=== PATIENT | male | born 1955 | race Caucasian/White ===

== ENCOUNTER 2019-04-27 06:01 | Inpatient (IN) | payer OTHER, SELFPAY ==
[2019-04-09 09:47] VITALS: BMI 27.4
[2019-04-27] VITALS (22 sets, daily range): BP systolic 93–152; BP diastolic 45–96; PULSE 63–101; RESP 12–24; TEMP 36.3–37.2; O2SAT 93–98; BMI 27.4
--- NOTE | 2019-04-27 | DI.RAD.S_ITS ---
PROCEDURE: XR LUMBAR SPINE 2-3V INDICATIONS: L2-3, L3-4, L4-5 TLIF TECHNIQUE: 2 views of the lumbar spine were acquired. COMPARISON: [facility], MR, MR LUMBAR SPINE WITHOUT CONTRAST, 02/24/2019, 9:06. [facility], CR, XR LUMBAR SPINE WITH FLEXION EXTENSION 5 VIEWS, 11/19/2018, 15:01. FINDINGS: Bones: 5 [id number] vertebrae are present. There is normal bony alignment. No new vertebral body compression fractures. No suspicious bony lesions. Transverse pedicle screws and vertical fixation rods span from L2-L5 with interbody disc prosthesis at the 3 intervening disc spaces. Soft tissues: Overlying bowel gas pattern is normal. No suspicious soft tissue calcifications. IMPRESSION: Prior spine fusion, normal alignment established by fixation crossing from L2-L5. Dictated by: Julian Hua M.D. on 04/27/2019 at 12:58 Approved by: Julian Hua M.D. on 04/27/2019 at 13:01
[2019-04-27] MEDS: LACTATED RINGERS 1,000 ML 42 ML IV ×3 (07:08→09:38)
--- NOTE | 2019-04-27 07:44 | PM.PREOP ---
Pre-operative Note Interval Note History & Physical reviewed/Exam performed by Physician: Yes Changes to H&P: No
[2019-04-27] MEDS: CEFAZOLIN 2 GM/100 ML FROZ.PIGGY IV ×4 (07:55→23:57)
--- NOTE | 2019-04-27 08:43 | SUR.OPER ---
Prone on spine table, head in foam head support, padded chest and pelvic supports, gel pad at knees, lower legs supported by pillows; nipples, genitalia and toes free of pressure, arms secured on foam padded arm boards at <90 degrees abduction. Tape over blanket at thigh secured to table.
[2019-04-27] MEDS: BUPIVACAINE LIPOSOME 266 MG/20 ML VIAL INJ (08:53)
[2019-04-27] MEDS: BUPIVACAINE 0.25% W/ EPI 30 ML VIAL INJ (08:53)
--- NOTE | 2019-04-27 08:56 | SUR.OPER ---
Heparin 40,000 units used in [facility] by STEFFANIE Tolentino
--- NOTE | 2019-04-27 09:02 | SUR.OPER ---
Surgery was scheduled with [facility] and needed Heparin 40,000 units for a rep to run it. Pharmacy needed an order from Dr. Cardozo. Late start because needed 's order for Heparin 40,000.
[2019-04-27] MEDS: ACETAMINOPHEN IV 1,000 MG/100 ML VIAL 400 MG IV (12:20)
--- NOTE | 2019-04-27 12:33 | SUR.OPER ---
[facility] blood 225 ml given to the patient, at 12:[address] Rocha
--- NOTE | 2019-04-27 13:00 | P.OP_ITS ---
Operative Date/Time/Diagnoses Date of procedure: 04/27/19 Time of procedure: 07:54 Pre-op diagnosis: 1. L2-3, L3-4, L4-5 spinal stenosis 2. Lumbar scoliosis 3. Lumbar spondylosis with radiculopathy Post-op diagnosis: same Procedure & Clinicians Procedure: 1. L2-3, L3-4, L4-5 Postero-lateral and posterior interbody fusion 2. L2-3, L3-4, L4-5 interbody cage placement. 3. L2-3, L3-4, L4-5 decompressive laminectomy with bilateral facetecomies 4. L2-3, L3-4, L4-5 Posterior segmental instrumentation 5. Winnie of bone marrow from iliac crest 6. Utilization of microsurgical technique and operating microscope Same procedure as scheduled: Yes Indications: Patient has been having chronic back pain and worsening lumbar radiculopathy. Patient failed multiple conservative management with worsening pain weakness and numbness in her lower extremity. Patient has been having difficulty performing activity of daily living. After discussing risks benefits of treatment options, patient elected proceed with surgery. Surgeon: Alistair Cardozo Front Office Help: Elli Aiken Click Yes if Unassisted: No Anesthesia Type: General Operative Notes Closure Type: primary Specimen(s): none sent Prosthetic devices, grafts, tissues, transplants, or devices: Globus revolve screws, Rise cages Applied: catheter Estimated Blood Loss (mL): 200 Blood products transfused: none Procedure in detail: Patient was seen in the preoperative area. Risks and benefits of the surgery was discussed with the patient. Informed consent was obtained from the patient and placed in the chart. Surgical site was marked. Patient was taken to the operative room. General anesthesia was administered. Prophylactic antibiotic was given to the patient less than 30 min before the incision was made. Patient was placed into a prone position on the Sloan table. Patient's back was then prepped and draped in the sterile fashion. Time- out was performed at this time. Using AP and lateral C-arm imaging the interval between L2-5 was identified and marked on patient's back. A 3 inch incision 2 in from midline was made on the right side first. The fascia was incised in line with skin incision. Globus MARS retractors was placed inside the incision and docked onto the L2, L3 and L4 lamina. Using microsurgical technique and operating microscope, a L2, L3 and L4 laminectomy and L2-3, L3-4, L4-5 facetectomy was performed using a Kerrison rongeur. The disc space at L2-3, L3-4, L4-5 was identified. And a total diskectomy was performed at L2-3, L3-4, L4-5 level. The endplates were decorticated using a rasp and shaver. The total diskectomy and decortication was performed at L2-3, L3-4, L4-5 level in order to to accomplish a L2-3, L3-4, L4-5 fusion. The local bone from the laminectomy and facetectomy was saved for local bone grafting. After the total diskectomy and decortication was completed, DBM bone graft material was combined with local bone that was harvested earlier. At this time, a separate skin is incision was made over the iliac crest. A Jamshidi needle was inserted into the iliac crest through a separate skin incision. 5 cc of bone marrow aspiration was obtained through the separate skin incision using a Jamshidi needle from the iliac crest. The bone marrow aspiration was combined with local bone and the DBM bone grafting material. The bone grafting material was placed into the L2-3, L3-4, L4-5 interbody space along with three cages, one expandable cage at each level. The cages were expanded to their maximum height using the torque limiting screwdriver. At this time a mirror image incision was made on the left side. The fascia was incised in line with the skin incision. Globus MARS retractor was inserted and docked onto the L2-3, L3-4, L4-5 posterolateral gutter. Using the power drill, posterior-lateral decortication was performed at L2-3, L3-4, L4-5 level until bleeding cortical bone was identified. The remaining bone grafting material was placed into the L2-3, L3-4, L4-5 posterior lateral gutter he order to accomplish posterolateral fusion at the L2-3, L3-4, L4-5 levels. Using the double C-arm technique, pedicle screws were placed into the L2, L3, L4, L5 pedicles bilaterally. This was done by placing the Jamshidi needle into the pedicles, then placing the guidewires over the Jamshidi needle, and finally placing the cannulated screws over the guidewires bilaterally. After the pedicle screws were placed, 2 titanium rods was locked into the heads of the pedicle screws using locking caps and torque limiting screwdriver. Total 8 pedicles screws were placed. After all the hardware was placed, and confirmed with AP and lateral C-arm imaging, the wound was then irrigated with sterile normal saline and packed with Ray-Shu gauze for 3 min to accomplish hemostasis. After the gauze was removed the deep fascia was closed with #1 Vicryl suture. The subcutaneous layer was closed with 2-0 Vicryl. The skin was closed with skin cole. Patient tolerated the procedure well. There were no complications. Complications: none Condition: stable Disposition: PACU Plan for aftercare: Admit to inpatient hospital
[2019-04-27] MEDS: HYDROMORPHONE 2 MG INJ 0.5 MG IV ×2 (13:28→13:55)
[2019-04-27] MEDS: hydrOXYzine 50 MG/ML INJ IM (13:37)
--- NOTE | 2019-04-27 13:45 | SUR.PHASEI ---
Report given to Rajesh
--- NOTE | 2019-04-27 14:06 | SUR.PHASEI ---
Barely able to keep eyes open but pain is 10/10. Sats at 92% on RA with rate okay but am reluctant to give more analgesic. Mildly tremor seen b/l to arms.
--- NOTE | 2019-04-27 14:08 | SUR.PHASEI ---
Also seen pulling off gown several times.
--- NOTE | 2019-04-27 14:48 | PT.IPTN ---
Current Diagnoses Other secondary scoliosis, lumbar region (04/27/19) Spondylolisthesis, lumbar region (04/27/19) Spinal stenosis, lumbar region with neurogenic claudication (04/27/19) Surgery Performed Operation Date: 04/27/19 07:45 Actual Procedures p L2-3,L3-4,L4-5 TLIF w/Posterior Instru. - Alistair Cardozo MD Physical Therapy Treatment Note Notes Pt just arriving to floor at 1445 and is still quite sleepy /groggy. Pt not yet ready to participate in therapy assessment, will hold today and attempt tomorrow.
[2019-04-27] MEDS: SODIUM CHLORIDE 0.9% 1,000 ML 100 ML IV (14:51)
[2019-04-27] MEDS: OXYCODONE IR 5 MG TABLET 10 MG PO ×3 (15:35→22:20)
[2019-04-27] MEDS: HYDROMORPHONE 1 MG INJ 0.5 MG IV (15:39)
[2019-04-27] MEDS: hydrOXYzine pamoate 25 MG CAPSULE PO (15:49)
[2019-04-27] MEDS: HYDROMORPHONE 0.5 MG INJ IV ×2 (15:55→23:56)
[2019-04-27] MEDS: diazePAM 5 MG TABLET PO ×2 (15:55→20:23)
[2019-04-27] MEDS: HYDROMORPHONE 2 MG INJ 1 MG IV (16:53)
[2019-04-27] MEDS: HYDROMORPHONE 1 MG INJ IV (17:58)
[2019-04-27] MEDS: OXYCODONE ER 10 MG TAB PO (20:23)
[2019-04-27] MEDS: DOCUSATE 100 MG CAPSULE PO (20:40)
[2019-04-27] MEDS: SENNOSIDES 8.6 MG TABLET 17.2 MG PO (20:42)
[2019-04-27] MEDS: TRAZODONE 50 MG TABLET PO (20:42)
[2019-04-28] VITALS (8 sets, daily range): BP systolic 110–120; BP diastolic 65–76; PULSE 67–94; RESP 14–18; TEMP 36.8–37.7; O2SAT 92–97
[2019-04-28] MEDS: OXYCODONE IR 5 MG TABLET 10 MG PO ×4 (01:27→14:31)
[2019-04-28] MEDS: SODIUM CHLORIDE 0.9% 1,000 ML 100 ML IV (01:28)
--- NOTE | 2019-04-28 04:21 | PC.NURSE ---
Addendum entered and electronically signed by Kezia Anthony R.N. 04/28/19 06:14: Saline locked @0615 Original Note: Addendum entered and electronically signed by Kezia Anthony R.N. 04/28/19 05:10: Coming on Shift Pt. admission assessment was not complete. I asked the same questions in my shift assessment so put it as completed. Original Note: Pt has had a lot of pain this shift and is complaining at times pain level 10/10. Pt has been given 10mg oxycodone Q3, w/ dilaudid for breakthrough pain. Pt has been re-positioned for pain relief. At 0430 Pt had elevated temp of 99.8, Tylenol was given, IS/Cough/Deep Breathing encouraged. Pt declined to wear SCD's, he was educated about the use of them. is by the side this night.
[2019-04-28] MEDS: ACETAMINOPHEN 325 MG TABLET 650 MG PO (04:39)
--- NOTE | 2019-04-28 07:47 | PM.PNPO.1 ---
Subjective Date Patient Seen: 04/28/19 Time Patient Seen: 07:00 Interval history: POD 1 s/p L2-[address] Cardozo. Patient had a lot of pain last night. He was on [place] 10/325 mg prior to surgery. Last night he was started on Valium, OxyContin, oxycodone 10, and had 1 dose of Dilaudid IV for breakthrough pain. He complains of pain mostly in the back and as tight muscle spasms. He has not been up with physical therapy yet. Exam Vital Signs (past 8 hours): - 04/27/19 23:50 04/28/19 04:25 04/28/19 04:39 Temperature 99.0 F 99.8 F H 99.8 F H Pulse Rate 91 H 94 H Respiratory Rate 18 16 Blood Pressure 131/75 120/76 Pulse Oximetry 96 95 Oxygen Delivery Method Room Air Oxygen Flow Rate 0 Narrative Exam Narrative: Patient is sitting up in bed in no acute distress. He is alert and oriented x3. Sensation intact light touch throughout bilateral lower extremities. Pulses are symmetrical. Calves are soft, compressible, nontender bilaterally. Assessment & Plan Post-op (1) S/P lumbar fusion: Postoperative Procedures Operation Date: 04/27/19 07:45 Actual Procedures Side Surgeon p L2-3,L3-4,L4-5 TLIF w/Posterior Instru. Alistair Cardozo MD Patient will continue current pain regimen. Added oxycodone 15 mg for severe breakthrough pain. Started on Decadron 10 mg now, and 4 mg every 6 hours for 24 hours. Patient will mobilize with physical therapy today. No excessive bending, lifting, twisting. Patient will likely discharge home in next 2-3 days once pain adequately controlled, and mobilizing safely.
[2019-04-28] MEDS: DEXAMETHASONE 10 MG/ML VIAL IV (07:49)
[2019-04-28] MEDS: OXYCODONE ER 10 MG TAB PO ×2 (09:15→21:01)
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
[2019-04-28] MEDS: DOCUSATE 100 MG CAPSULE PO ×2 (10:15→21:01)
[2019-04-28] MEDS: dexAMETHasone 4 MG TABLET PO ×2 (14:31→18:46)
--- NOTE | 2019-04-28 14:42 | PT.IPTN ---
Current Diagnoses Other secondary scoliosis, lumbar region (04/27/19) Spondylolisthesis, lumbar region (04/27/19) Spinal stenosis, lumbar region with neurogenic claudication (04/27/19) Arthrodesis status (04/27/19) Surgery Performed Operation Date: 04/27/19 07:45 Actual Procedures p L2-3,L3-4,L4-5 TLIF w/Posterior Instru. - Alistair Cardozo MD Physical Therapy Treatment Note M2 PT-IP Current Condition Start: 04/27/19 14:47 Freq: NEEDED Status: Active Protocol: Document 04/28/19 09:15 AB (Rec: 04/28/19 11:01 AB [id number]) Physical Therapy Current Condition Current Condition Evaluation Date 04/28/19 Treatment Diagnosis L2-5 fusion/lami; difficulty in walking Onset Date 04/27/19 Precautions Lumbar Precautions Log Roll No Twisting Limit Bending Lifting Restriction of 10 lbs Gait Belt above Incisional Area M3 PT-IP Subjective Start: 04/27/19 14:47 Freq: NEEDED Status: Active Protocol: Document 04/28/19 13:30 CLB (Rec: 04/28/19 14:42 CLB [id number]) Subjective Physical Therapy Visit Type Type Treatment Note Visit Start Time 13:30 Visit Stop Time 13:50 Total Visit Minutes 20 Number of HEALTH INFORMATION CODER Visits 1 Physical Therapy Visit Comments Patient Comments pt agreed to do PT Therapy Pain Assessment Pain When Pain Assessed During Mobility Pain Present Pain Present Pain Reported Location Back Intensity 5 Scale Used Numeric (1 - 10) Pain Management Techniques Re-positioning Timing of Activity with Medications M4 PT-IP Mobility and Gait Start: 04/27/19 14:47 Freq: NEEDED Status: Active Protocol: Document 04/28/19 13:30 CLB (Rec: 04/28/19 14:42 CLB [id number]) PT-Bed Mobility Assessment Rolling Type of Rolling Log Rolling Level of Assist Minimal Assistance Sit to Supine Sit to Supine Moderate Assistance 1 Person Assistance PT-Transfer Assessment Sit to and From Stand Sit to and from Stand Moderate Assistance 1 Person Assistance Use of Upper Extremities Equipment Transfer Assistive Device Gait Belt Front Wheeled Walker Orthotic/Prosthetic Devices or Brace: No Transfers Transfer Destination Bed Transfer Technique pt ambulated using FWW Transfer Ability Level of Assist Moderate Assistance 1 Person Assistance Use of Upper Extremities Gait Assessment Gait Gait Assistance Required: Contact Guard Assist Distance (Feet) 50 Able to Maintain Weight Bearing Status Yes During Gait Assistive Devices Assistive Device Gait Belt Front Wheeled Walker Orthotic/Prosthetic Devices or Brace: No Gait Deviations General Gait Pattern Antalgic Decreased Stride Length Decreased Feet Clearance Factors Limiting Gait Function Factors Limiting Gait Function Decreased Activity Tolerance Decreased Strength Limited Range of Motion Pain Poor Balance Poor Safety Awareness M5 PT-IP Objective Assessments Start: 04/27/19 14:47 Freq: NEEDED Status: Active Protocol: Document 04/28/19 09:15 AB (Rec: 04/28/19 11:01 AB [id number]) Orientation Orientation/Cognition Level of Alertness Alert Orientation Name Place Situation Language Function Ability No Deficits Noted Safety Awareness Decreased Safety Awareness Gross Range of Motion Lower Extremity ROM Assessment Within Functional Limits Strength Lower Extremity Strength Assessment Bilaterally Impaired Comments Strength Comments LLE: 4-/5 RLE: 3+/5 Sensation Assessment Sensation Gross Sensation WNL Muscle Tone Muscle Tone WNL Yes M6 PT-IP Treatment Start: 04/27/19 14:47 Freq: NEEDED Status: Active Protocol: Document 04/28/19 09:15 AB (Rec: 04/28/19 11:01 AB [id number]) Physical Therapy Treatment Education Education Provided Precautions Weight Bearing Status Post-Op Packet Safety M7 PT-IP Assessment and Plan Start: 04/27/19 14:47 Freq: NEEDED Status: Active Protocol: Document 04/28/19 13:30 CLB (Rec: 04/28/19 14:42 CLB [id number]) PT Summary Assessment and Plan Summary Impairments Pain ROM Strength Balance Coordination Bed Mobility Transfers Gait Activity Tolerance Assessment Summary Pt requires Mod A for sit- stand from chair and Min A of LE's during bed mobility. Pt able to increase gait distance to ~50ft w/FWW/CGA. Pt able to recall 2/3 precautions. Pt left in bed with alarm on, SCD 's on bilateral feet and present. Goals Bed Mobility Goal Standby Assistance Transfer Goal Standby Assistance Front Wheeled Walker Gait Goal Standby Assistance Front Wheel Walker Gait Distance 150 Days to Meet Goals 5 Frequency of Treatment Frequency Of Treatment Twice a Day Treatment Plan Physical Therapy Treatment Plan Bed Mobility Training Transfer Training Gait Training Therapeutic Exercise Balance Retraining Post Op Education Discharge Planning Hot or Cold Pack Neuromuscular Re-ed Coordination Retraining Manual Therapy Other Recommendations and Next Treatment ambulation, caregiver training Focus , stair climbing Recommendations To Nursing Amount of Assist Needed 1 Person Assist Discharge Recommendations PT Discharge Recommendations Home with Assistance Equipment Needed for Home Before FWW Discharge
--- NOTE | 2019-04-28 14:56 | PC.NURSE ---
Pt reports better pain control with addition of dexamethasone. Pain level down to 5/10 which he states is the lowest it has been. He reports that bilat foot neuropathy may be slightly improved from baseline. He is eating and drinking without n/v. He is hesitant to have monge catheter removed due to difficulty mobilizing and pain. He would like to wait until pain med effective and re evaluate. Using call light appropriately and waiting for assistance.
--- NOTE | 2019-04-28 14:59 | CM.DANOTE ---
Addendum entered by Kristal Daniel LPN 04/28/19 15:10: Met pt as planned and introduced self and role. His is rooming in but not in the room at this time. Pt confirms his plan for home and that, while he does not own a FWW he has access to one. My main concern is that I don't get discharged too early, before I am ready. Encouraged him to discuss this each day when the ortho team rounds and that this will likely be very early in the morning. P: DCP team will be following to assist prn with any needs that may arise. Original Note: Discharge Planning/Care Management DCP: assessment: Case received, EMR reviewed. Discussed in Team Rounds. Pt is a 63 year old male who admitted yesterday for a planned spinal surgery: Dr. Cardozo: Surgeon Payer: Derick Ram LAUREN PT and OT are ordered. PT did see pt for the first time today. OT notes are not yet available. Ortho MARLENA Horowitz noted pt with pain and back spasms. Pt identified his goal for d/c to home setting in his pre-op assessmetn: see below. P: Check in with pt and follow accordingly for d/c issues and options. Advanced directive, confirm from FAMILY Start: 04/27/19 15:42 Freq: Q24H Status: Active Protocol: Document 04/27/19 15:42 AGW (Rec: 04/27/19 23:26 AGW [id number]) Advance Directive, confirm on record Time 17:00 Person contacted Copy received No CM Discharge Assessment Start: 04/28/19 14:58 Freq: Status: Active Protocol: Document 04/28/19 14:58 ITV (Rec: 04/28/19 14:59 ITV [id number]) Discharge Planning Assessment Advance Directives? Yes Advance Directives on File No History Provided By Medical Record Prior Living Arrangements House Household Members spouse Independent with ADL's Yes Is patient alert and oriented? Yes Whiteboard Updated in Patient Room with Yes name and ext. # of De Icer Finisher Review Status In Process Pre-Anesthesia Assessment Start: 04/09/19 09:47 Freq: Status: Complete Protocol: Document 04/09/19 09:47 CAB (Rec: 04/09/19 10:12 CAB [id number]) Pre-Anesthesia Assessment PAC Comment Jehovah Witness NO BLOOD PRODUCTS Patient Also Known As Prasad (AKA) Patient Information Reviewed Via Phone Assessment Assessment Completed With Patient H&P Completed Within 30 Days Yes Diagnostic Results BMP/CMP CBC EKG Comment Outside labs/EKG 03/31/19 scanned to record Seen Specialist in Last 12 Months Yes Specialist Seen Orthopedist Primary Language [facility] Worker Required No Height 167.64 cm Weight 77.111 kg Body Mass Index (BMI) 27.4 Hearing Ability Hard of Hearing Use of Hearing Aid Visual Assist Glasses Dentition Type Teeth, Natural Present Teeth, Missing Barriers to Learning Memory Other Aids Yes: CPAP (Intermittent) Hx Anesthesia Reactions Yes: PONV, can be immediate or delayed by a day Hx Family Anesthesia Reaction No Hx Malignant Hyperthermia No Hx Blood Transfusions No: Jehovah Witness NO BLOOD PRODUCTS Anesthesia Review Requested No [employer] 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 No Does patient have SINGH/SOB No Hx Sleep Apnea Yes CPAP/BIPAP use prescribed used intermittently Will Bring CPAP/BIPAP DOS Yes Currently Taking a Beta [place] No Can You Climb a Flight of Stairs Without Yes SOB Hx Chest Pain No Hx SOB No Hx Syncope or Dizziness No Anti-Coagulant Therapy No Has a Pyrometer Temperature Regulator No Cardiac Testing No Hx Pacemaker/ICD No Pacemaker Rep Required? No Cardiac Clearance Received Not Applicable Diet Type At Home Regular dysphagia No Urinary Catheter Present No Hx Urinary Self Catheterization No Diabetes No: Pre-diabetes Hx Drug Resistant Organism No Presence of External or Internal Medical Yes: Left ankle hardware, CPAP Devices Have you traveled outside the [facility] States in the last 30 days? Marital Status Lives With spouse Prior Living Arrangements House Number of Floors (Floors) Two Floors Support System Friend(s) Spouse Does the Patient Have Assistance After Yes Surgery Patient Discharge Plan Description Return Home Comment Pt advised 2 day length of stay per surgeon's office Feels Safe in Current Environment Yes Been Physically Hurt or Threatened By a No Person in Current Environment Do you have thoughts of harming yourself None or others? Are you currently considering suicide? No Do you have a plan to hurt yourself or No Plan others? Do You Have Any Spiritual Beliefs That Yes: Jehovah Witness NO May Affect Your HC Choices? BLOOD PRODUCTS Do You Have Any Cultural Practices That No May Affect Your HC Choices? Spiritual Referral None Who Can We Speak to About Patient's Care Family, friends Identifying Code for Release of Patient Declines to issue Information Health Care Proxy/Next of Kin Stephanie () Health Care Proxy Emergency Contact Name Stephanie () Emergency Contact Advance Directives? No: Declines further information Power of News Analyst Yes Power of News Analyst Name Stephanie () Power of News Analyst PAC Instructions Bring CPAP/BIPAP Do not shave/clip surgical site Durable medical equipment Medications to take/avoid Nasal antibiotic No ETOH/petroleum product on skin DOS NPO Post-op transportation Pre-surgical wash Sturdy shoes/comfortable clothes Do not bring valuables and remove jewelry
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
[2019-04-28] MEDS: OXYCODONE IR 5 MG TABLET 15 MG PO (17:12)
[2019-04-28] MEDS: TRAZODONE 50 MG TABLET PO (21:01)
[2019-04-28] MEDS: SENNOSIDES 8.6 MG TABLET 17.2 MG PO (21:01)
[2019-04-29] MEDS: dexAMETHasone 4 MG TABLET PO ×2 (00:01→06:26)
[2019-04-29] MEDS: OXYCODONE IR 5 MG TABLET 15 MG PO ×2 (00:04→13:23)
[2019-04-29 00:40] VITALS: BP 121/75; PULSE 88; RESP 16; TEMP 36.8; O2SAT 94
[2019-04-29 06:24] VITALS: BP 123/75; PULSE 89; RESP 16; TEMP 36.8; O2SAT 92
--- NOTE | 2019-04-29 08:11 | PM.PNPO.1 ---
Subjective Date Patient Seen: 04/29/19 Time Patient Seen: 08:11 Exam Vital Signs (past 8 hours): - 04/29/19 00:40 04/29/19 06:24 Temperature 98.3 F 98.3 F Pulse Rate 88 89 Respiratory Rate 16 16 Blood Pressure 121/75 123/75 Pulse Oximetry 94 92 Oxygen Delivery Method Room Air Oxygen Flow Rate 0 Assessment & Plan Post-op Postoperative Procedures Operation Date: 04/27/19 07:45 Actual Procedures Side Surgeon p L2-3,L3-4,L4-5 TLIF w/Posterior Instru. Alistair Cardozo MD
[2019-04-29 08:18] VITALS: BP 116/76; PULSE 80; RESP 17; TEMP 36.7; O2SAT 91
[2019-04-29] MEDS: OXYCODONE ER 10 MG TAB PO (08:18)
[2019-04-29] MEDS: SODIUM CHLORIDE 0.9% FLUSH 10 ML IV (08:19)
[2019-04-29] MEDS: DOCUSATE 100 MG CAPSULE PO (08:19)
[2019-04-29] MEDS: MAGNESIUM HYDROXIDE 30 ML UDC PO (08:20)
--- NOTE | 2019-04-29 09:25 | PT.IPTN ---
Current Diagnoses Other secondary scoliosis, lumbar region (04/27/19) Spondylolisthesis, lumbar region (04/27/19) Spinal stenosis, lumbar region with neurogenic claudication (04/27/19) Arthrodesis status (04/27/19) Surgery Performed Operation Date: 04/27/19 07:45 Actual Procedures p L2-3,L3-4,L4-5 TLIF w/Posterior Instru. - Alistair Cardozo MD Physical Therapy Treatment Note M2 PT-IP Current Condition Start: 04/27/19 14:47 Freq: NEEDED Status: Active Protocol: Document 04/28/19 09:15 AB (Rec: 04/28/19 11:01 AB [id number]) Physical Therapy Current Condition Current Condition Evaluation Date 04/28/19 Treatment Diagnosis L2-5 fusion/lami; difficulty in walking Onset Date 04/27/19 Precautions Lumbar Precautions Log Roll No Twisting Limit Bending Lifting Restriction of 10 lbs Gait Belt above Incisional Area M3 PT-IP Subjective Start: 04/27/19 14:47 Freq: NEEDED Status: Active Protocol: Document 04/29/19 09:25 GGD (Rec: 04/29/19 10:50 GGD [id number]) Subjective Physical Therapy Visit Type Type Treatment Note Visit Start Time 09:00 Visit Stop Time 09:25 Total Visit Minutes 25 Number of MANAGER CIVIL Visits 2 Physical Therapy Visit Comments Patient Comments Pt willing to work with therapy. Therapy Pain Assessment Pain When Pain Assessed During Mobility Pain Present Pain Present Pain Reported Location Back Intensity 4 Scale Used Numeric (1 - 10) M4 PT-IP Mobility and Gait Start: 04/27/19 14:47 Freq: NEEDED Status: Active Protocol: Document 04/29/19 09:25 GGD (Rec: 04/29/19 10:50 GGD [id number]) PT-Bed Mobility Assessment Rolling Type of Rolling Log Rolling Level of Assist Contact Guard Assistance Supine to Sit Supine to Sit Contact Guard Assistance Bedrails Sit to Supine Sit to Supine Minimal Assistance 1 Person Assistance PT-Transfer Assessment Sit to and From Stand Sit to and from Stand Contact Guard Assistance 1 Person Assistance Use of Upper Extremities Equipment Transfer Assistive Device Gait Belt Front Wheeled Walker Orthotic/Prosthetic Devices or Brace: No Transfers Transfer Destination Bed Transfer Ability Level of Assist Contact Guard Assistance Use of Upper Extremities Gait Assessment Gait Gait Assistance Required: Contact Guard Assist Distance (Feet) 130 Able to Maintain Weight Bearing Status Yes During Gait Assistive Devices Assistive Device Gait Belt Front Wheeled Walker Orthotic/Prosthetic Devices or Brace: No Gait Deviations General Gait Pattern Antalgic Decreased Stride Length Decreased Feet Clearance Factors Limiting Gait Function Factors Limiting Gait Function Decreased Activity Tolerance Decreased Strength Limited Range of Motion Pain Poor Balance Poor Safety Awareness M5 PT-IP Objective Assessments Start: 04/27/19 14:47 Freq: NEEDED Status: Active Protocol: Document 04/28/19 09:15 AB (Rec: 04/28/19 11:01 AB [id number]) Orientation Orientation/Cognition Level of Alertness Alert Orientation Name Place Situation Language Function Ability No Deficits Noted Safety Awareness Decreased Safety Awareness Gross Range of Motion Lower Extremity ROM Assessment Within Functional Limits Strength Lower Extremity Strength Assessment Bilaterally Impaired Comments Strength Comments LLE: 4-/5 RLE: 3+/5 Sensation Assessment Sensation Gross Sensation WNL Muscle Tone Muscle Tone WNL Yes M6 PT-IP Treatment Start: 04/27/19 14:47 Freq: NEEDED Status: Active Protocol: Document 04/28/19 09:15 AB (Rec: 04/28/19 11:01 AB [id number]) Physical Therapy Treatment Education Education Provided Precautions Weight Bearing Status Post-Op Packet Safety M7 PT-IP Assessment and Plan Start: 04/27/19 14:47 Freq: NEEDED Status: Active Protocol: Document 04/29/19 09:25 GGD (Rec: 04/29/19 10:50 GGD [id number]) PT Summary Assessment and Plan Summary Assessment Summary Pt improving with mobility. He need less assist and able to progress gait distance. Pt plans on D/C home with spouse. Frequency of Treatment Frequency Of Treatment Twice a Day Treatment Plan Physical Therapy Treatment Plan Bed Mobility Training Transfer Training Gait Training Therapeutic Exercise Balance Retraining Post Op Education Discharge Planning Hot or Cold Pack Neuromuscular Re-ed Coordination Retraining Manual Therapy Other Recommendations and Next Treatment ambulation, stair climbing Focus Recommendations To Nursing Amount of Assist Needed 1 Person Assist Discharge Recommendations PT Discharge Recommendations Home with Assistance
--- NOTE | 2019-04-29 10:22 | OT.IP.TRT ---
Current Diagnoses Other secondary scoliosis, lumbar region (04/27/19) Spondylolisthesis, lumbar region (04/27/19) Spinal stenosis, lumbar region with neurogenic claudication (04/27/19) Arthrodesis status (04/27/19) Surgery Performed Operation Date: 04/27/19 07:45 Actual Procedures p L2-3,L3-4,L4-5 TLIF w/Posterior Instru. - Alistair aCrdozo MD Occupational Therapy Treatment Note M2 OT-IP Current Condition Start: 04/28/19 19:04 Freq: Status: Active Protocol: Document 04/28/19 15:54 PJM (Rec: 04/28/19 19:20 PJM [id number]) Occupational Therapy Current Condition Current Condition Evaluation Date 04/28/19 Treatment Diagnosis decr'd self care, mobility s/p L2-5 TLIF Post Operative Precautions Lumbar Precautions Log Roll No Twisting Limit Bending Lifting Restriction of 10 lbs Gait Belt above Incisional Area M3 OT- IP Subjective and Pain Start: 04/28/19 19:04 Freq: Status: Active Protocol: Document 04/29/19 10:12 [facility] (Rec: 04/29/19 10:22 [facility] [id number]) OT- Subjective Occupational Therapy Visit Type Type Treatment Note Visit Start Time 09:35 Visit Stop Time 10:05 Total Visit Minutes 30 Occupational Therapy Visit Comments Patient Comments Pt agreeable to get up and do caregiver training with pt's who was also present in the room. OT Pain Assessment Pain When Pain Assessed During Mobility Pain Present Pain Present Pain Reported Location Back Intensity 8 Scale Used Numeric (1 - 10) M4 OT- IP ADL's Start: 04/28/19 19:04 Freq: Status: Active Protocol: Document 04/29/19 10:12 [facility] (Rec: 04/29/19 10:22 [facility] [id number]) OT ADL-Grooming General Evaluation Grooming Ability Standby Assistance Areas Needing Assistance Retrieving/Set-up of Grooming Items Comments OT Grooming Comments VC to bend at hips to spit into the sink or spit into a cup. OT ADL-Oral Care General Eval Oral Care Ability Independent OT ADL-Dressing General Eval Lower Body Dressing Ability Standby Assistance Assistive Devices Dressing Assistive Devices Long Handled [place] Senior [employer] Developer Sock Aid Comments OT Dressing Comments Pt able to safety use endodontics dentist , sock aid for lb dressing needs. Educated to dress right leg first as the weaker side. OT ADL-Toileting General Evaluation Toileting Ability Standby Assistance Comments OT Toileting Comments Educated to either lean to side and reach or stand durign practice on the commode, however pt only able to pass gas at this time. M5 OT- IP IADL's Start: 04/28/19 19:04 Freq: Status: Active Protocol: Document 04/28/19 15:54 PJM (Rec: 04/28/19 19:[address] [id number]) OT-Instrumental Activities of Daily Living Deficits IADL Deficits Identified Deficits Home Safety Awareness Awareness of Need for Assistance at Home Good Awareness Ability to Problem Solve Emergency Able to Problem Solve Situations Medication Management Medication Management No Deficits Identified Money Management Money Management No Deficits Identified Meal Preparation Meal Preparation Caregiver Provides Assist Environmental Monitoring Specialist Environmental Monitoring Specialist Caregiver Provides Assist Driving Driving Caregiver Provides Assist Driving Comments until pt able M6 OT- IP Functional Cognition Start: 04/28/19 19:04 Freq: Status: Active Protocol: Document 04/29/19 10:12 [facility] (Rec: 04/29/19 10:22 [id number] Cognitive Factors Limiting Selfcare Function Cognitive Ability Level of Alertness Alert Attention Span Ability Capable of Focused Attention Capable of Sustained Attention Ability to Follow Commands Able to Follow Multi-Step Commands Memory Description No Deficits Noted Safety Awareness Decreased Ability to Apply Precautions Problem Solving Ability No deficits Noted Cognitive Comments Cognitive Assessment Comments Occasional reminders to incorporate back precautions during mobility needs. M7 OT- IP Mobility and Balance Start: 04/28/19 19:04 Freq: Status: Active Protocol: Document 04/29/19 10:12 [facility] (Rec: 04/29/19 10:22 [facility] [id number]) OT- Bed Mobility Assessment Rolling Type of Rolling Roll to Left Level of Assistance Minimal Assistance Supine to Sit Supine to Sit Assist Standby Assistance Scooting Scooting to Edge of Bed Minimal Assistance OT-Transfer Assessment Sit to and From Stand Sit to and from Stand Contact Guard Assistance Transfers Transfer Ability Standby Assistance Contact Guard Assistance Technique Transfer Destination Bed Devices Transfer Assistive Devices Gait Belt Front Wheeled Walker Comments Mobility Comments Today pt's iwfe needing to assist to help roll pt to the side, and help get legs back into the bed. Pt's able to show good safety and understanding for all. Educated on body mechanics and positioning for car transfers. OT- Balance Assessment Sitting Balance and Reactions Static Sitting Balance Ability Good Dynamic Sitting Balance Ability Good Standing Balance and Reactions Static Standing Balance Ability Good M8 OT- IP Objective Assessments Start: 04/28/19 19:04 Freq: Status: Active Protocol: Document 04/28/19 15:54 PJM (Rec: 04/28/19 19:20 PJM [id number]) OT Gross Range of Motion Upper Extremity Range of Motion Assessment Within Functional Limits OT Strength Upper Extremity Strength Assessment Within Functional Limits OT- Coordination Assessment Comments Coordination Comments BUE WFL OT-Muscle Tone Assessment Muscle Tone WNL Yes OT Sensation Assessment Comments Summary Comments BUE WNL per pt Edema Edema Absent M9 OT- IP Assessment and Plan Start: 04/28/19 19:04 Freq: Status: Active Protocol: Document 04/29/19 10:12 [facility] (Rec: 04/29/19 10:22 [facility] [id number]) OT Summary Assessment and Plan Potential Rehabilitation Potential Good Analytic Complexity at Evaluation Low Summary OT Impairments Pain Balance Functional Cognition Progress Towards Goals Progressing Toward Goals Assessment Summary Pt doing well and pt's has been trained for all OT needs and able to demonstrate good safety and awarness for all needs. Pt states may be going home this afternoon. Discharge Recommendations OT Discharge Recommendations Home with Assistance Home Equipment Needs pt to order endodontics dentist
[2019-04-29 11:42] VITALS: BP 125/80; PULSE 79; RESP 15; TEMP 36.8; O2SAT 92
--- NOTE | 2019-04-29 12:53 | P.DS_ITS ---
History of Present Illness Date Patient Seen: 04/29/19 Time Patient Seen: 07:04 Chief complaint: [id number] Narrative: Patient has been having chronic back pain and worsening lumbar radiculopathy. Patient failed multiple conservative management with worsening pain weakness and numbness in her lower extremity. Patient has been having difficulty performing activity of daily living. After discussing risks benefits of treatment options, patient elected proceed with surgery. Discharge Providers Date of admission: 04/27/19 06:01 Discharge Date: 04/29/19 Consults: 04/27/19 14:35 Consult to Occupational Therapy Evaluate & Treat Comment: Physician Instructions: Evaluate and treat Consult to Physical Therapy Evaluate & Treat Comment: Physician Instructions: Evaluate and Treat Discharge provider: Maribel Kraus PA-C Summary Discharge Diagnosis: s/p TLIF sleep apnea hypertension Hospital Course: Rey was admitted for TLIF with Dr. Cardozo and he consented to procedure. On POD #2 patient was ready to DC home. He was eating and voiding without difficulty or assistance. He did have difficulty with pain control and was started on Oxycontin BID, Oxycodone 15 mg Q3HRs, and Vistaril. Prior to surgery he was taking Beatrice. He has been up with PT throughout his stay. Exam Vital Signs (past 8 hours): - 04/29/19 06:24 04/29/19 08:18 04/29/19 11:42 Temperature 98.3 F 98.1 F 98.2 F Pulse Rate 89 80 79 Respiratory Rate 16 17 15 Blood Pressure 123/75 116/76 125/80 Pulse Oximetry 92 91 92 Oxygen Delivery Method Room Air Oxygen Flow Rate 0 Narrative Exam Narrative: Patient lying in bed in NAD. He is alert and oriented X3. Calves are soft, compressible, and nontender bilaterally. Coversite dressing applied prior to DC. SILT throughout BLEs. Pain very well controlled this AM. No complaints of muscle spasms. He has been up and ambulating with PT today. Discharge Plan Discharge Plan Patient Disposition: Home Discharge Med Rec/Prescriptions Prescriptions: New acetaminophen 325 mg Tablet 650 mg PO Q6HR PRN (Reason: Pain, Mild (1-3)) Qty: 60 RF: 0 docusate sodium [DOK] 100 mg Capsule 100 mg PO BID Qty: 60 RF: 0 hydroxyzine pamoate 25 mg Capsule 25 mg PO Q4HR PRN (Reason: Nausea And Vomiting) Qty: 40 RF: 0 oxycodone [OxyContin] 10 mg Tablet,Oral Only,Ext.Rel.12 Hr 10 mg PO BID Qty: 20 RF: 0 oxycodone 5 mg capsule 5 mg PO Q3-5H PRN (Reason: pain) Qty: 90 RF: 0 Continued trazodone 50 mg Tablet 50 mg PO BEDTIME RF: 0 Discontinued hydrocodone-acetaminophen 5-325 mg Tablet 1 tab PO Q4-6H PRN (Reason: Pain) RF: 0 naproxen sodium [Aleve] 220 mg Capsule 3 tab PO DAILY PRN (Reason: Pain) RF: 0 Follow up/Referrals: Alistair Cardozo MD [Physician] - Provider Discharge Instructions Activity: No excessive bending, lifting, or twisting Skin/Wound/Dressing Care Report to your healthcare provider any signs of infection, such as:: chills, fever and increased pain Dressing: Coversite dressing until appointment Visit Report/Discharge Packet Instructions: DI for Transforaminal Lumbar Interbody Fusion, Hydroxyzine (By mouth), Oxycodone, Slow Release (By mouth) Visit Report Forms: Stroke Signs & Symptoms Discharge Data Attending Provider: Alistair Cardozo Admit Date/Time: 04/27/19 06:01 Discharges patient from system. Discharge Date/Time: 04/29/19 14:30
--- NOTE | 2019-04-29 14:36 | PC.NURSE ---
Pt to d/c home per MD orders. DC teaching provided to pt and by NICOLAS Valentino. PIV removed. Rx provided. All belongings gathered and sent with pt/. [employer] escorted pt via w/c to pov. Pt was in no acute distress.
== END 2019-04-29 14:30 | disposition home or self-care (01) | DRG 455 ==
PROVIDERS: Admitting Provider Orthopaedic Surgery Orthopaedic Surgery of the Spine; Visit Provider Orthopaedic Surgery Orthopaedic Surgery of the Spine
PROC: 0SG10AJ Fusion of 2 or more Lumbar Vertebral Joints with Interbody Fusion Device, Posterior Approach, Anterior Column, Open Approach (ICD-10-PCS; principal; 2019-04-27 07:45)
DX: M48.061 Spinal stenosis, lumbar region without neurogenic claudication (principal); M41.56 Other secondary scoliosis, lumbar region; M43.16 Spondylolisthesis, lumbar region; M62.830 Muscle spasm of back
CPT/HCPCS: 72100; 76000; 97116; 97161; 97165; 97530; 97535; C1776; C9290; J0131; J0330; J0690; J1100; J1170; J2405; J2704; J3010; J3410

== ENCOUNTER 2019-10-29 10:41 | Inpatient (IN) | payer OTHER, SELFPAY ==
[2019-04-27 15:24] VITALS: BMI 27.4
[2019-10-29 11:04] VITALS: BP 138/80; PULSE 69; RESP 16; TEMP 36.7; O2SAT 99
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
[2019-10-29 11:08] VITALS: BP 138/80; PULSE 69; RESP 16; TEMP 36.7; O2SAT 99
--- NOTE | 2019-10-29 11:27 | DI.MRI.S_ITS ---
PROCEDURE: MR LUMBAR SPINE WO/W CON INDICATIONS: severe pain, weakness, from spine surgeon TECHNIQUE: Noncontrast sagittal T1 spin echo and T2 fast spin echo, sagittal STIR, axial T1 and T2 fast spin echo through the lumbar spine. In cases with scoliosis, additional coronal T2 fast spin echo may be performed. After the administration of contrast, sagittal and axial T1 spin echo with fat saturation through the lumbar spine. COMPARISON: [facility], CR, XR LUMBAR SPINE 2-3V, 04/27/2019, 8:28. MRI lumbar spine 02/24/19. FINDINGS: Image quality: Excellent. Alignment and curvature: There is normal bony alignment. Marrow: Marrow is of normal overall signal. No acute vertebral body compression fractures. No suspicious marrow enhancement. Spinal cord: Conus medullaris terminates at the T12-L1 level. Visualized spinal cord demonstrates normal signal, without suspicious enhancement. Paraspinous soft tissues: No paravertebral masses or abnormal enhancement. Postoperative changes are seen, with bilateral pedicle screws at the L2-L5 levels. The screws at L2 are superiorly angulated, please correlate with surgical intent. Vertical fixation rods are seen. Disc spacers are seen throughout the postoperative region. There has been removal of portions of the posterior elements. T12-L1: Normal appearance. L1-L2: Moderate loss of disc height is seen. Loss of disc signal is seen. Gnxx-ep-qfueznot disc bulge is seen. There is T2 hyperintense material seen posterior to the disc level and posterior to the L1 vertebral body on the left. This measures 2.9 cm craniocaudally. This abnormal material does not enhance, however. There is moderate left-sided and mild right-sided neural foraminal narrowing seen. Moderate central canal narrowing is seen. The left-sided abnormal material is not seen on the prior MRI examination. L2-L3: Postoperative changes are seen at this level. Moderate disc bulge is seen. Wngh-of-ckdkcuzb bilateral neural foraminal narrowing is seen. Mild central canal narrowing is seen. The degree of central canal narrowing is improved compared prior. L3-L4: Postoperative changes are seen at this level. Moderate disc bulge is seen. There is moderate right-sided and mild left-sided neural foraminal narrowing seen. The central canal is widely patent. The degree of central canal narrowing is clearly improved compared to the preoperative MRI. L4-L5: There are postoperative changes at this level. Moderate disc bulge is seen. There is at least moderate bilateral neural foraminal narrowing seen. No significant central canal narrowing is seen. There is improved compared to the preoperative MRI. L5-S1: The disc height is well-preserved. Loss of disc signal is seen at this level. Mild to moderate disc bulge is seen. Pxri-qn-uxocxsvl facet hypertrophy is seen. There is moderate left-sided and no right-sided neural foraminal narrowing seen. No central canal narrowing is seen. When comparison is made with the prior examination, these findings are similar. IMPRESSION: At the L1-L2 level, there is abnormal T2 hyperintense material seen within the left lateral recess. This abnormal material does not enhance. Differential diagnosis includes extruded disc material and potentially hemorrhage. Epidural abscess is considered to be unlikely, given the lack of enhancement. Unremarkable L2-L5 postoperative change, with improvement in the degrees of central canal narrowing within the postoperative region. Dictated by: Shorty Keen M.D. on 10/29/2019 at 11:46 Approved by: Shorty Keen M.D. on 10/29/2019 at 11:58
[2019-10-29] MEDS: HYDROMORPHONE 1 MG INJ 0.5 MG IV (11:57)
[2019-10-29 12:15] LABS: Add Manual Diff / Slide Review NO; Basophils Absolute Auto 100 /uL (0-100); Basophils Percent Auto 0.4 % (0-2); Eosinophils Absolute Auto 0 /uL (0-450); Eosinophils Percent Auto 0.1 % (2-4); Hematocrit 39.4 % (41-53); Hemoglobin 13.6 g/dL (13.5-17.5); Lymphocytes Absolute Auto 1400 /uL (1100-4500); Lymphocytes Percent Auto 11.2 % (25-40); Mean Corpuscular HGB Conc 34.4 % (30-36); Mean Corpuscular Hemoglobin 29.6 PG (26-34); Monocytes Absolute Auto 1000 /uL (0-900); Monocytes Percent Auto 8.6 % (3-14); Neutrophils Absolute Auto 9800 /uL (1500-7000); Neutrophils Percent Auto 79.7 % (50-75); Platelet Count 382 X10^3/uL (150-400); Red Blood Cell Count 4.58 X10^6/uL (4.5-5.9); Red Cell Distribution Width 13.4 % (11.6-14.8); White Blood Cell Count 12.3 X10^3/uL (4.5-11.0)
[2019-10-29 12:28] LABS: Blood Urea Nitrogen 16 mg/dL (9-20); C-Reactive Protein Quant 8.3 mg/dL (<1.0); Calcium 9.7 mg/dL (8.4-10.2); Carbon Dioxide 29 mmol/L (22-32); Chloride 94 mmol/L (98-107); Estimated Glomerular Filt Rate > 60.0 mL/min (>60); Glucose 140 mg/dL (80-110); HEMOLYSIS < 15 (0-50); Sodium 134 mmol/L (137-145)
[2019-10-29 12:43] LABS: Erythrocyte Sedimentation Rate 47 MM/HR (0-15)
[2019-10-29 12:47] LABS: Procalcitonin < 0.05 ng/mL (<0.5)
[2019-10-29 13:14] LABS: Bacteria Urine None Seen; RBC Urine None Seen (0-5/HPF); WBC Urine None Seen (0-5/HPF)
[2019-10-29] MEDS: HYDROMORPHONE 0.5 MG INJ IV (13:14)
[2019-10-29 13:17] VITALS: BP 154/74; PULSE 67; RESP 14; O2SAT 94
[2019-10-29 13:27] LABS: Culture Indicated Urine Cult Not Indicated
[2019-10-29 14:35] VITALS: BP 150/74; PULSE 65; RESP 12; O2SAT 95
[2019-10-29] MEDS: HYDROMORPHONE 0.5 MG INJ 1 MG IV (14:47)
[2019-10-29 15:24] VITALS: BMI 26.6
[2019-10-29] MEDS: SODIUM CHLORIDE 0.9% 1,000 ML 80 ML IV (16:05)
--- NOTE | 2019-10-29 17:41 | PC.ADMIT ---
[email or web address] [facility] Admission Note: The patient,Rey Muro,64 y/o, was given written information regarding hospital policies, unit procedures and contact persons. Patient's smoking status: Never smoker. Vital Signs - 8 hr 10/29/19 11:04 10/29/19 11:08 10/29/19 13:17 Temperature 98.1 F 98.1 F Pulse Rate 69 69 67 Respiratory Rate 16 16 14 Blood Pressure 138/80 138/80 Blood Pressure [Right Arm] 154/74 H Pulse Oximetry 99 99 94 10/29/19 14:35 Temperature Pulse Rate 65 Respiratory Rate 12 Blood Pressure Blood Pressure [Right Arm] 150/74 H Pulse Oximetry 95 Patient admitted to room 222 from ED, awake, alert, and pleasant. Oriented to room, environment, and plan of care. High fall risk precautions initiated, call light within reach. NPO after MN
[2019-10-29] MEDS: HYDROMORPHONE 2 MG INJ 1 MG IV ×2 (18:03→21:49)
[2019-10-29] MEDS: DOCUSATE 100 MG CAPSULE PO (20:11)
[2019-10-29] MEDS: OXYCODONE IR 5 MG TABLET PO ×2 (20:11→23:47)
[2019-10-29 20:57] VITALS: BP 108/62; PULSE 70; RESP 17; TEMP 36.6; O2SAT 96
[2019-10-29] MEDS: TRAZODONE 50 MG TABLET PO (21:49)
[2019-10-29 23:30] VITALS: BP 147/83; PULSE 76; RESP 16; TEMP 36.6; O2SAT 93
[2019-10-29] MEDS: ACETAMINOPHEN 325 MG TABLET 650 MG PO (23:44)
[2019-10-29] MEDS: hydrOXYzine pamoate 25 MG CAPSULE PO (23:47)
[2019-10-30] VITALS (23 sets, daily range): BP systolic 97–180; BP diastolic 58–83; PULSE 57–67; RESP 8–20; TEMP 36.4–37.2; O2SAT 93–99; BMI 26.6
--- NOTE | 2019-10-30 | DI.RAD.S_ITS ---
PROCEDURE: XR LUMBAR SPINE 2-3V INDICATIONS: L1-L2 DISECTOMY TECHNIQUE: Single intraoperative fluoroscopic image of the lumbar spine were acquired. COMPARISON: [facility], KATINA, XR LUMBAR SPINE 2-3V, 04/27/2019, 8:28. FINDINGS: Intraoperative fluoroscopic images of lumbar spine at thoracolumbar junction shows surgical instrument placed over left side of L1-2 level. Fusion hardware is seen at L2-3 level is seen. IMPRESSION: Fluoroscopy guidance was provided intraoperatively for L1-L2 discectomy. Dictated by: Jose Valle M.D. on 10/30/2019 at 14:44 Approved by: Jose Valle M.D. on 10/30/2019 at 14:45
[2019-10-30] MEDS: HYDROMORPHONE 2 MG INJ 1 MG IV (01:02)
[2019-10-30] MEDS: HYDROMORPHONE 1 MG INJ IV ×3 (03:08→09:14)
[2019-10-30] MEDS: SODIUM CHLORIDE 0.9% FLUSH 10 ML IV ×2 (03:09→06:43)
[2019-10-30] MEDS: SODIUM CHLORIDE 0.9% 1,000 ML 80 ML IV (06:24)
--- NOTE | 2019-10-30 10:40 | PC.NURSE ---
Day shift Pt able to urinate only small amounts, bladder scan and was 665ml. Jose MENDIOLA on the floor, order obtained for monge placement. This was placed as surgery was here to take pt down for his procedure. He was SL and left floor around 1030.
[2019-10-30] MEDS: LACTATED RINGERS 1,000 ML 42 ML IV ×2 (10:47→13:30)
[2019-10-30] MEDS: GABAPENTIN 300 MG CAPSULE PO (10:50)
[2019-10-30] MEDS: ACETAMINOPHEN 325 MG TABLET 975 MG PO (10:50)
[2019-10-30] MEDS: CELECOXIB 200 MG CAPSULE 400 MG PO (10:50)
[2019-10-30] MEDS: OXYCODONE IR 5 MG TABLET PO (11:52)
[2019-10-30] MEDS: BUPIVACAINE 0.25% W/ EPI 30 ML VIAL INJ (12:41)
[2019-10-30] MEDS: VANCOMYCIN 1,000 MG/200 ML PIGGYBACK 200 MG IV (13:03)
[2019-10-30] MEDS: GENTAMICIN 80 MG in SODIUM CHLORIDE 0.9% 1,000 ML 12024 MG IRR (13:04)
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
--- NOTE | 2019-10-30 13:24 | PM.OP.1 ---
Operative Date/Time/Diagnoses Date of procedure: 10/30/19 Time of procedure: 11:24 Pre-op diagnosis: 1. L1-2 disc extrusion 2. L1-2 spinal stenosis Post-op diagnosis: other (1. L1-2 disc extrusion 2. L1-2 spinal stenosis 3. L1-2 discitis and epidural abscess) Procedure & Clinicians Procedure: 1. L1-2 left hemilaminectomy 2. L1-2 microdiscectomy 3. L1-2 irrigation debridement of epidural space Same procedure as scheduled: Yes Indications: Patient has been having acute onset back pain and worsening lumbar radiculopathy with hx of lumbar fusion. Work up showed elevated WBC, ESR. MRI shows L1-2 epidural lesion. Patient has been bed ridden due to the severe back pain. The patient was admitted through the emergency room to the inpatient hospital for pain management and additional medical management. Patient has been having difficulty performing activity of daily living. After discussing risks benefits of treatment options, patient was scheduled for urgent lumbar decompression surgery. Surgeon: Alistair Cardozo Click Yes if Unassisted: No Anesthesia Type: General Operative Notes Closure Type: primary Specimen(s): other (L1-2 disc, L1-2 epidural fluid culture) Estimated Blood Loss (mL): 5 Blood products transfused: none Procedure in detail: Patient was seen in the preoperative area. Risks and benefits of the surgery was discussed with the patient. Informed consent was obtained from the patient and placed in the chart. Surgical site was marked. Patient was taken to the operative room. General anesthesia was administered. IV antibiotics was held. Patient was placed into a prone position on the Sloan table. Patient's back was then prepped and draped in the sterile fashion. Time-out was performed at this time. Using AP and lateral C-arm imaging the interval between L1-2 was identified and marked on patient's back. A 1 inch incision 1 in from midline was made on the left side. The fascia was incised in line with skin incision. Globus MARS retractors was placed inside the incision and docked onto the L1 lamina. Using microsurgical technique and operating microscope, a L1-2 left hemilaminectomy was performed using a Kerrison rongeur. Liagamentum flavum was resected at the site of the laminotomy. The disc space at L1-2 was identified. Microdiscectomy was performed by incising the annulus with #11 blade. Microcurettes and pituitary was used to removed herniated disc fragments of disc from the epidural space. There was 1 large extruded disc at the L1-2 epidural space. The extruded disc fragment was removed with pituitary. The disc fragment appears to be macerated and shows fraying consistent with infection. There was also 1 cc of epidural fluid that was cloudy consistent with epidural abscess. The appearance intraoperatively of the L1-2 disc is consistent with a hematogenous diskitis at L1-2 level with rupturing of the annulus with extruded disc as result of the diskitis. Both swabs as well as tissue tissue was sent for culture Gram stain and sensitivity from the L1-2 level. 1 g of vancomycin was given after the culture was taken. After the microdiskectomy was completed, the area medial lateral superior and inferior to the area of the microdiskectomy was inspected and explored using a micro curette. No other impinging structure was identified. The wound was then irrigated with sterile normal saline with gentamicin. IV antibiotics was held until the culture was taken. The deep fascia was closed with 1-0 Vicryl. The subcutaneous tissue was closed with 2-0 Vicryl. The skin was closed with skin cole. Patient tolerated the procedure well. There were no complications. Patient was transferred recovery room in stable condition. Patient will be admitted into the inpatient hospital on IV antibiotics. I'll wait for his culture results to return and place him on appropriate antibiotic treatment program for his discharge. Complications: none Post-operative Condition: stable Disposition: PACU Plan for aftercare: Admit to inpatient hospital
[2019-10-30] MEDS: fentaNYL 100 MCG/2 ML INJ IV ×3 (13:49→14:08)
--- NOTE | 2019-10-30 14:34 | CM.DANOTE ---
Discharge Planning/Care Management DCP: assessment: case received, EMR reviewed. Discussed in Team Rounds. Pt is a 64 year old male who admitted to care of Dr. Cardozo. Payer: [employer] [facility] Pt with history of spinal surgery with Dr. Cardozo in April. He was able to go home with is [facility] at d/c and reportedly did well until recent increasing pain and decrease in ability to mobilize. MRI was ordered and pt was taken to surgery today for L1-2 Left hemilaminectomy, micro discectomy and I&D of epidural space/ Post op diagnosis: L1-2 disc extrusion, spinal stenosis, discitis and epidural abscess. Pt has not yet returned to floor from PACU. Anticipate IV antibiotics plus OT/PT involvement. P: DCP team will be following to meet with pt and look at d/c issues and options. CM Discharge Assessment Start: 10/30/19 14:33 Freq: Status: Active Protocol: Document 10/30/19 14:33 ITV (Rec: 10/30/19 14:34 ITV [id number]) Discharge Planning Assessment Advance Directives? Yes Advance Directives on File No History Provided By Medical Record Prior Living Arrangements House Household Members spouse Independent with ADL's Yes: until recently Is patient alert and oriented? Yes Review Status In Process
[2019-10-30] MEDS: SODIUM CHLORIDE 0.9% 1,000 ML 100 ML IV (14:55)
[2019-10-30] MEDS: levoFLOXacin 750 MG/150 ML PIGGYBACK 100 MG IV (18:22)
[2019-10-30] MEDS: diazePAM 5 MG TABLET PO (21:18)
[2019-10-30] MEDS: DOCUSATE 100 MG CAPSULE PO (21:18)
[2019-10-30] MEDS: VANCOMYCIN 1,500 MG/300 ML FROZ.PIGGY 200 MG IV (21:18)
[2019-10-30] MEDS: SENNOSIDES 8.6 MG TABLET 17.2 MG PO (21:18)
[2019-10-30] MEDS: OXYCODONE IR 10 MG TABLET PO (21:19)
[2019-10-30] MEDS: hydrOXYzine pamoate 25 MG CAPSULE PO (21:19)
[2019-10-31] VITALS (7 sets, daily range): BP systolic 123–148; BP diastolic 45–79; PULSE 61–77; RESP 16–20; TEMP 36.2–37; O2SAT 93–96
[2019-10-31] MEDS: OXYCODONE IR 10 MG TABLET PO ×2 (00:07→03:30)
[2019-10-31] MEDS: SODIUM CHLORIDE 0.9% 1,000 ML 100 ML IV ×2 (00:08→09:32)
[2019-10-31] MEDS: HYDROMORPHONE 0.5 MG INJ IV ×3 (02:04→19:52)
[2019-10-31] MEDS: hydrOXYzine pamoate 25 MG CAPSULE PO ×3 (02:05→19:53)
[2019-10-31] MEDS: ACETAMINOPHEN 325 MG TABLET 650 MG PO ×4 (02:16→22:12)
--- NOTE | 2019-10-31 04:43 | PC.NURSE ---
Patient VSS, Lung sounds clear. Patient has had increased pain the shift. Patient has been stating that pain is anywhere between 8-10/10. Patient has had PO and IV medications along with ice packs. Patient states that his pain is in his back and left leg. Dr. Soto was called at 0430 and informed of patients condition and pain level. Dr. Soto gave a verbal order for 4mg dialudid PO. Will continue to monitor patient's pain level.
[2019-10-31] MEDS: HYDROMORPHONE 4 MG TABLET PO ×6 (05:22→23:59)
[2019-10-31] MEDS: VANCOMYCIN 1,500 MG/300 ML FROZ.PIGGY 200 MG IV ×2 (09:36→20:48)
--- NOTE | 2019-10-31 09:36 | PM.PNPO.1 ---
Subjective Subjective Date Patient Seen: 10/31/19 Time Patient Seen: 09:36 Interval history: POD 1 s/p L1-L2 hemilaminectomy, microdiscectomy and irrigation debridment by Dr. Cardozo. Patient complains of low back pain and L leg sciatica like pain that was present before surgery but feels worse. Has not mobilized with PT. Pain control was marginal and doctor was contacted last night (ordered dilaudid 4mg PO). Patient states this resolved his pain and he was able to sleep after. Pain management has involved oxycodone, dilaudid IV and PO, vistaril, valium and tylenol. Urinary catheter in place. No BM but passing gas. Lab cultures pending - gram stain shows gram positive rods; consulted pharmacy last night and added levaquin Patient denies fever, chills, chest pain, shortness of breath, calf pain, bowel incontinence, numbness, tingling. Exam Vital Signs (past 8 hours): - 10/31/19 04:40 10/31/19 07:38 Temperature 98.6 F Pulse Rate 68 62 Respiratory Rate 16 Blood Pressure 136/77 Pulse Oximetry 94 94 Oxygen Delivery Method Room Air Oxygen Flow Rate 0 Narrative Exam Narrative: 64 year old male is laying comfortably in bed, in no apparent distress. A&Ox3. Dressing is in place - dry serosanguineous drainage. Sensory function grossly intact to light touch in LE bl. Dorsalis pedis 2+ bl. Able to actively dorsiflex/plantar flex bl. Calves warm, soft, compressible, nttp. Objective Labs Result Diagrams: 10/29/19 12:00 10/29/19 12:00 Assessment & Plan Post-op Postoperative Procedures: Procedures Operation Date: 10/30/19 10:30 Actual Procedures Side Surgeon p L1-2 micro d w/ poss HW revision Alistair Cardozo MD Postoperative status: doing well Postoperative plan: routine post-op care Postoperative plan narrative: Discussed pain control with nurse - administer dilaudid 4mg PO, vistaril, valium, tylenol Will consider decadron if pain control is marginal Patient to mobilize with PT Continue SCDs Follow culture/sensitivity for antibiotic choice Continue vancomycin/levaquin Patient will stay in hospital while labs are pending. Most likely discharge in next 24-48 hours. Time Spent With Patient Time with patient: less than 15 minutes
[2019-10-31] MEDS: diazePAM 5 MG TABLET PO ×2 (09:39→20:49)
[2019-10-31] MEDS: DOCUSATE 100 MG CAPSULE PO ×2 (09:39→20:48)
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
--- NOTE | 2019-10-31 11:59 | PC.NURSE ---
Addendum entered by Tami Barbour R.N. 10/31/19 13:41: At 1330 after ambulating to BR and back to bed, pt states on rest pain to left leg is 3-4/10 and 9/10 with movement. Pain to mid lower back on rest is 2/10 and 3-4/10 with movement. Dilaudid po prn given at 1335. Pt stated he did void a small amount of urine at 1330. Original Note: Day Shift- Pt reports pain to lower back and left leg improved since early AM Dilaudid po dose, pain 4/10. States less intense pain to left leg. Pain management plan discussed. Po Dilaudid prn given at 0940 for 4/10 pain, upon reassessment, pt reports pain still being managed at 4/10 pain. CMS+, PPP, denies numbness or tingling. While in bed, pt able to slightly lift BLE off bed one at a time, LLE has more lift than RLE. OOB to BR with 1PA and FWW, pt reported having moderate soft BM, small amount of blood reported on toilet paper, pt states has internal and external hemorrhoids. Urinary catheter removed at 1120 without difficulty. Post removal instructions given to pt, urinal within reach. Will monitor.
--- NOTE | 2019-10-31 14:49 | CM.DPC ---
DCP continued: EMR Reviewed: CM/Rn met with patient at the bedside and explained role. Patient was alert and oriented x3 and patients was present at time of CM meeting. CM/RN talked with patient about possibly needing SNF at d/c Due to his difficulty with PT and OT. Patient stated he wants to review SNF options with and CM department can follow up tomorrow to get SNF choice. Patient did state how concerned he is with his pain level when he attempts to move or walk and would like to know why he is having so much pain. CM/RN got permission from the patient to contact [facility] and get an authorization started for SNF placement since it can take a few days. Patient would prefer to go home with rather then SNF. SNF is suggested by PT and OT for rehab and building strength. Patient is willing to go but has not chosen preferred SNF location and would like to talk to Ortho prior to making determination to go to SNF offical. [facility] Contacted -MERLIN Ríos [phone] Kelli covering - [phone]. CM/RN spoke with Kelli at [facility] and she wanted a copy of patients PT/OT notes to review. MERLIN pereira stated that if patient is walking 20ft (not over 50ft) with PT even just to bathroom they can approve patient for SNF but currently are unable to because patient hasn't been able to work with PT/ OT to show that rehab will help the patient. MERLIN Pereira requested CM/RN send PT/OT notes for her to review and for CM department to call her tomorrow with PT/OT update for possible SNF authorization approval. PT/OT notes from today 10/31/2019 were faxed to [facility] for their review. Fiona Camarena RN.
--- NOTE | 2019-10-31 16:39 | PT.IPTN ---
Surgery Performed Operation Date: 10/30/19 10:30 Actual Procedures p L1-2 micro d w/ poss HW revision - Alistair Cardozo MD Physical Therapy Treatment Note M2 PT-IP Current Condition Start: 10/31/19 12:29 Freq: NEEDED Status: Active Protocol: Document 10/31/19 09:49 AB (Rec: 10/31/19 12:42 AB [id number]) Physical Therapy Current Condition Current Condition Evaluation Date 10/31/19 Treatment Diagnosis s/p L1-2 L hemilami, microdisc and I&D; difficulty in walking Onset Date 10/29/2019 Precautions Lumbar Precautions Log Roll,No Twisting,Limit Bending,Lifting Restriction of 10 lbs,Gait Belt above Incisional Area M3 PT-IP Subjective Start: 10/31/19 12:29 Freq: NEEDED Status: Active Protocol: Document 10/31/19 15:45 LJ (Rec: 10/31/19 16:39 LJ [id number]) Subjective Physical Therapy Visit Type Type Treatment Note Visit Start Time 15:45 Visit Stop Time 16:04 Total Visit Minutes 19 Notes found pt standing at side of bed with FWW and no gait belt. states she helped him up . sitting across the room on the couch. reports the nurse assisted him to the toilet. Pt stated he just could not stay in the bed any longer M4 PT-IP Mobility and Gait Start: 10/31/19 12:29 Freq: NEEDED Status: Active Protocol: Document 10/31/19 15:45 LJ (Rec: 10/31/19 16:39 LJ [id number]) PT-Bed Mobility Assessment Sit to Supine Sit to Supine Minimal Assistance,1 Person Assistance PT-Transfer Assessment Sit to and From Stand Sit to and from Stand Contact Guard Assistance,1 Person Assistance,Use of Upper Extremities Equipment Transfer Assistive Device Gait Belt,Front Wheeled Walker Orthotic/Prosthetic Devices or Brace: No Transfers Transfer Destination Bed Transfer Ability Level of Assist Minimal Assistance,1 Person Assistance,Use of Upper Extremities Comments Mobility Comments Pt standing up in room next to bed when COOK HELPER PRESERVES entered room. sitting on the couch talking with other visitor. Pt with some confusion as to how to flex at the hips to return to seating on the bed. Pt lowered himself straight down then flexed his back as he sat down. Required assist lifting LEs in bed as well as scooting to head of bed. Gait Assessment Gait Gait Assistance Required: Minimum Assistance,1 Person Assist Distance (Feet) 75 Assistive Devices Assistive Device Gait Belt,Front Wheeled Walker Gait Deviations General Gait Pattern Antalgic,Decreased Stride Length,Decreased Feet Clearance,Step-to Gait Factors Limiting Gait Function Factors Limiting Gait Function Decreased Activity Tolerance, Decreased Strength,Limited Range of Motion,Pain,Poor Balance,Poor Safety Awareness Comments Gait Comments pt needing cues for FWW positioning and erect posture. Occasionally closed eyes during ambulation. Lifting feet better when cued. Pt returned to room and wanted to get in bed stating the pain was too high to sit up in chair. Left pt in room with family and all needs in reach. M5 PT-IP Objective Assessments Start: 10/31/19 12:29 Freq: NEEDED Status: Active Protocol: Document 10/31/19 09:49 AB (Rec: 10/31/19 12:42 AB [id number]) Orientation Orientation/Cognition Level of Alertness Alert Orientation Name,Place,Situation Safety Awareness Decreased Safety Awareness Gross Range of Motion Lower Extremity ROM Assessment Within Functional Limits Strength Lower Extremity Strength Assessment Bilaterally Impaired Comments Strength Comments RLE: 4-/5 LLE 3+/5 Muscle Tone Muscle Tone WNL Yes M6 PT-IP Treatment Start: 10/31/19 12:29 Freq: NEEDED Status: Active Protocol: Document 10/31/19 15:45 ANASTACIO (Rec: 10/31/19 16:39 LJ [id number]) Physical Therapy Treatment Education Education Provided Precautions,Safety M7 PT-IP Assessment and Plan Start: 10/31/19 12:29 Freq: NEEDED Status: Active Protocol: Document 10/31/19 15:45 ANASTACIO (Rec: 10/31/19 16:39 LJ [id number]) PT Summary Assessment and Plan Potential Rehabilitation Potential Good Status of Condition at Evaluation Stable Summary Impairments Pain,ROM,Strength,Balance, Coordination,Sensation,Tone, Cognition,Bed Mobility, Transfers,Gait,Activity Tolerance Assessment Summary Pt requires ModA to CGA for mobility with cueing for FWW management and transfers to hip hinge rather than bend. Pt may need monitoring to assure safety in mobility and gait due to him getting up by himself and his not being close to assist him if needed . Gait distance increased but he is still complaining of a lot of pain and may need reminding to have assistance when mobilizing. Goals Bed Mobility Goal Standby Assistance Transfer Goal Standby Assistance,Front Wheeled Walker Gait Goal Standby Assistance,Front Wheel Walker Gait Distance 200 Other Goals up/down 2 steps L rail descending SBA up/down 8 steps R rail ascend/ L rail descend SBA Days to Meet Goals 5 Frequency of Treatment Frequency Of Treatment Twice a Day Treatment Plan Physical Therapy Treatment Plan Bed Mobility Training,Transfer Training,Gait Training, Therapeutic Exercise,Balance Retraining,Post Op Education, Discharge Planning,Hot or Cold Pack,Neuromuscular Re-ed, Coordination Retraining,Manual Therapy Recommendations To Nursing Amount of Assist Needed 1 Person Assist Discharge Recommendations PT Discharge Recommendations SNF Rehab
[2019-10-31] MEDS: levoFLOXacin 750 MG/150 ML PIGGYBACK 100 MG IV (17:32)
[2019-10-31] MEDS: SODIUM CHLORIDE 0.9% FLUSH 10 ML IV ×2 (17:34→21:38)
--- NOTE | 2019-10-31 18:06 | PC.NURSE ---
Addendum entered by Violet Ramos R.N. 10/31/19 22:00: Dr. Soto called to notify of substantial pain post administration of analgesics. Rec vto for Decadron and shorted PO Dilaudid from q 4 hrs to q 3 hrs. Medicated per dec. Spouse rooming-in verbalized concern of IV abx causing pt the need to void which causes pain during movement. Education given for the rationale of ABX and importance of mobility and hydration. Original Note: Assumed care of pt at 1500. Pt resting in bed during bedside hand-off. Requesting P.T. to return for afternoon therapy. P.T. notified. Patient up with P.T. and returned to bed. Pt has been attempting to get oob with family, bed alarm sounding. Educated on falls and fall prevention. Pt and family notified to call staff for all assistance r/t mobility. Medicating per dec. Pt reports medication effective. Declines ice packs to back. Foot scd's on. Student nurse assisting with care/assessments. All care completed by student has been under the supervision of this RN.
[2019-10-31] MEDS: SENNOSIDES 8.6 MG TABLET 17.2 MG PO (20:49)
[2019-10-31] MEDS: DEXAMETHASONE 4 MG/ML VIAL IV (20:51)
[2019-10-31] MEDS: SODIUM CHLORIDE 0.9% 250 ML 21 ML IV (21:38)
[2019-11-01] VITALS (8 sets, daily range): BP systolic 118–149; BP diastolic 73–95; PULSE 70–84; RESP 12–20; TEMP 36.6–37.6; O2SAT 92–97
[2019-11-01] MEDS: hydrOXYzine pamoate 25 MG CAPSULE PO ×4 (00:03→23:55)
[2019-11-01] MEDS: HYDROMORPHONE 4 MG TABLET PO ×2 (02:48→06:22)
[2019-11-01] MEDS: diazePAM 5 MG TABLET PO ×2 (08:31→20:24)
[2019-11-01] MEDS: DOCUSATE 100 MG CAPSULE PO ×2 (08:31→20:23)
[2019-11-01] MEDS: VANCOMYCIN TROUGH 1 REQUEST MISC (08:58)
--- NOTE | 2019-11-01 10:09 | P.PN_ITS ---
Subjective Subjective Date Patient Seen: 11/01/19 Time Patient Seen: 10:10 Interval history: POD 3 s/p L1-L2 hemilaminectomy, microdiscectomy and irrigation debridment by Dr. Cardozo. Patient complains of low back pain and L leg sciatica like pain that was present before surgery but feels worse. Has not mobilized with PT very well. Pain control was marginal and medications have been changed last night to better control his pain. Patient states this resolved his pain and he was able to sleep after. Pain management has involved oxycodone, dilaudid IV and PO, vistaril, valium, tylenol and 1x order of decadron 4mg. Urinary catheter in place. No BM but passing gas. Lab cultures pending - gram stain shows gram positive rods; consulted pharmacy last night and added levaquin Patient denies fever, chills, chest pain, shortness of breath, calf pain, bowel incontinence, numbness, tingling. Exam Vital Signs (past 8 hours): - 11/01/19 05:15 11/01/19 07:29 11/01/19 08:00 Temperature 98.3 F 97.8 F Pulse Rate 79 71 72 Respiratory Rate 12 20 Blood Pressure 118/79 140/81 Pulse Oximetry 96 92 95 Oxygen Delivery Method Room Air Oxygen Flow Rate 0 Narrative Exam Narrative: Sitting up in bedside chair, in no apparent distress. A&Ox3. Dressing is in place - dry serosanguineous drainage. Sensory function grossly intact to light touch in BLE. Dorsalis pedis 2+ bl. Able to actively dorsiflex/plantar flex. Calves warm, soft, compressible, nttp. Objective Labs Result Diagrams: 10/29/19 12:00 10/29/19 12:00 Labs: Laboratory Results - last 24 hr 11/01/19 08:36 Vancomycin Trough 9.0 L Assessment & Plan Assessment & Plan narrative: Procedures: Operation Date: 10/30/19 10:30 Actual Procedures Side Surgeon: Alistair Cardozo MD p L1-2 micro d w/ poss HW revision Postoperative status: doing OK Postoperative plan: routine post-op care, with exception of higher than expected pain Postoperative plan narrative: Discussed pain control with nurse - administer dilaudid 4mg PO, vistaril, valium, tylenol Patient to mobilize with PT Continue SCDs Follow culture/sensitivity for antibiotic choice Continue vancomycin/levaquin Patient will stay in hospital while labs are pending. Most likely discharge in n ext 24-48 hours. Time Spent With Patient Time with patient: less than 15 minutes
[2019-11-01] MEDS: VANCOMYCIN 1,500 MG/300 ML FROZ.PIGGY 200 MG IV (10:18)
[2019-11-01] MEDS: SODIUM CHLORIDE 0.9% FLUSH 10 ML IV ×2 (10:18→22:48)
--- NOTE | 2019-11-01 10:29 | PT.IPTN ---
Surgery Performed Operation Date: 10/30/19 10:30 Actual Procedures p L1-2 micro d w/ poss HW rosa - Alistair Cardozo MD Physical Therapy Treatment Note M2 PT-IP Current Condition Start: 10/31/19 12:29 Freq: NEEDED Status: Active Protocol: Document 10/31/19 09:49 AB (Rec: 10/31/19 12:42 AB [id number]) Physical Therapy Current Condition Current Condition Evaluation Date 10/31/19 Treatment Diagnosis s/p L1-2 L hemilami, microdisc and I&D; difficulty in walking Onset Date 10/29/2019 Precautions Lumbar Precautions Log Roll,No Twisting,Limit Bending,Lifting Restriction of 10 lbs,Gait Belt above Incisional Area M3 PT-IP Subjective Start: 10/31/19 12:29 Freq: NEEDED Status: Active Protocol: Document 11/01/19 10:29 CLB (Rec: 11/01/19 13:05 CLB [id number]) Subjective Physical Therapy Visit Type Type Treatment Note Visit Start Time 10:29 Visit Stop Time 10:44 Total Visit Minutes 15 Notes present during tx, pt agreeable to ambulate with therapy. Number of THREAD CLIPPER Visits 2 Physical Therapy Visit Comments Patient Comments Pt willing to ambulate with therapy. Therapy Pain Assessment Pain When Pain Assessed During Mobility Pain Present Pain Present Pain Reported M4 PT-IP Mobility and Gait Start: 10/31/19 12:29 Freq: NEEDED Status: Active Protocol: Document 11/01/19 10:29 CLB (Rec: 11/01/19 13:05 CLB [id number]) PT-Transfer Assessment Sit to and From Stand Sit to and from Stand Minimal Assistance,1 Person Assistance,Use of Upper Extremities Equipment Transfer Assistive Device Gait Belt,Front Wheeled Walker Orthotic/Prosthetic Devices or Brace: No Transfers Transfer Destination Chair,Toilet Transfer Technique ambulated using FWW Transfer Ability Level of Assist Minimal Assistance,1 Person Assistance,Use of Upper Extremities Comments Mobility Comments Pt required Min A sit-stand from chair and required assist with doffing brief and cues for hand placement on wall rail for stand to sit onto toilet. Left pt on toilet with call light, RICKY Velasquez informed. Gait Assessment Gait Gait Assistance Required: Minimum Assistance,1 Person Assist Distance (Feet) 100 Assistive Devices Assistive Device Gait Belt,Front Wheeled Walker Gait Deviations General Gait Pattern Antalgic,Decreased Stride Length,Decreased Feet Clearance,Step-to Gait Factors Limiting Gait Function Factors Limiting Gait Function Decreased Activity Tolerance, Decreased Strength,Limited Range of Motion,Pain,Poor Balance,Poor Safety Awareness Comments Gait Comments Pt required Min A with cues for posture and ovoiding obstacles including wall during ambulation. Pt required one standing rest break with c/o increased pain in LLE but was unable to give it a number or discription of pain. Pt required assist with IV pole during ambulation. M5 PT-IP Objective Assessments Start: 10/31/19 12:29 Freq: NEEDED Status: Active Protocol: Document 10/31/19 09:49 AB (Rec: 10/31/19 12:42 AB [id number]) Orientation Orientation/Cognition Level of Alertness Alert Orientation Name,Place,Situation Safety Awareness Decreased Safety Awareness Gross Range of Motion Lower Extremity ROM Assessment Within Functional Limits Strength Lower Extremity Strength Assessment Bilaterally Impaired Comments Strength Comments RLE: 4-/5 LLE 3+/5 Muscle Tone Muscle Tone WNL Yes M6 PT-IP Treatment Start: 10/31/19 12:29 Freq: NEEDED Status: Active Protocol: Document 10/31/19 15:45 LJ (Rec: 10/31/19 16:39 LJ [id number]) Physical Therapy Treatment Education Education Provided Precautions,Safety M7 PT-IP Assessment and Plan Start: 10/31/19 12:29 Freq: NEEDED Status: Active Protocol: Document 11/01/19 10:29 CLB (Rec: 11/01/19 13:05 CLB [id number]) PT Summary Assessment and Plan Potential Rehabilitation Potential Good Status of Condition at Evaluation Stable Summary Impairments Pain,ROM,Strength,Balance, Coordination,Sensation,Tone, Cognition,Bed Mobility, Transfers,Gait,Activity Tolerance Assessment Summary Pt requires Min A for all mobility and cues for posture and ovoiding obstacles in tran . Pt requires increased time for ambulation as pt walks slowly. Pt requires one person assist during ambulation and transfers for safety and would benefit from SNF rehab to improve strenght and functional mobility. Goals Bed Mobility Goal Standby Assistance Transfer Goal Standby Assistance,Front Wheeled Walker Gait Goal Standby Assistance,Front Wheel Walker Gait Distance 200 Other Goals up/down 2 steps L rail descending SBA up/down 8 steps R rail ascend/ L rail descend SBA Days to Meet Goals 5 Frequency of Treatment Frequency Of Treatment Twice a Day Treatment Plan Physical Therapy Treatment Plan Bed Mobility Training,Transfer Training,Gait Training, Therapeutic Exercise,Balance Retraining,Post Op Education, Discharge Planning,Hot or Cold Pack,Neuromuscular Re-ed, Coordination Retraining,Manual Therapy Recommendations To Nursing Amount of Assist Needed 1 Person Assist Discharge Recommendations PT Discharge Recommendations SNF Rehab
--- NOTE | 2019-11-01 14:32 | PC.NURSE ---
1430 Pt sleeping off and on, has been offered pain meds if needed, Pt declines, statesis okay for now. Inst Pt to let me know if pain meds needed.
--- NOTE | 2019-11-01 14:38 | CM.DPC ---
DCP: continued: case received, EMR reviewed and met with pt. Introduced self and role. Followed up on prior discussion of d/c issues and options. Pt confirms that he is frustrated by his lack of understanding as to why he has an infection, why he suddenly developed problems in his spine when his surgery in April 2019 had been so successful. He would like to talk with Dr. Cardozo but says he has only been seeing orthopedic staff who are rounding and they all tell me that they won't have answers for me until they hear from Dr. Cardozo. OT and PT are seeing pt and are recommending a snf stay. Pt says he would like to go home, will go to snf if this is needed but not just to be shipped off there. I want to have answers to my questions before I would do that. It is noted that pt needed one person assist with SPIKE DRIVER Kellie today but also mobilized to 100 ft with FWW. Pt says he is doing better today but I just got back and went into the bathroom with the ACOUSTIC INTELLIGENCE SPECIALIST's help. The pain was so sharp in my groin that I wanted to cry. Snf choice list discussed in view of [facility]. [facility], [facility] and [facility]. Pt says IF he must go and insurance will auth the [facility] facility would likely be best but he will discuss with his . Also discussed the possibility of need for IV antibiotics at [place]. Note that the rounding ortho team is not addressing this specifically in their documentation, only saying that the culture/sensitivities are pending. Was able to speak with ortho MARLENA Garcia who was here seeing another pt but familiar with this case as he rounded yesterday. He did contact Dr. Soto who said it was highly possible that pt WOULD need 6 weeks of IV antibiotics at d/c but that until the cultures are finalized and Dr. Cardozo makes a determination it is too early to start any planning for this. Have discussed same with pt with idea that this may be able to be done in snf setting or home setting. At this point is is unclear what his [employer] plan will cover and of course auth is needed. Spoke then at length with Derick Pereira: [phone]. She stated that if pt is not at a functional baseline where he will only need supportive assist and has need for IV antibiotics and short snf stay would likely be authorized but that the team on for tomorrow will need to relook at tomorrow's documentation. She said she can see that pt has a snf benefit but that customer service will need to let pt know what his copay might be. P: DCP team to continue to follow tomorrow for further clarity from ortho re ? Iv antibiotics and continued followup on snf vs home setting. [facility] tomorrow morning for their consideration in case snf is needed and to discuss same with the DCPlanner who will be on the case tomorrow.
--- NOTE | 2019-11-01 14:51 | PT.IPTN ---
Surgery Performed Operation Date: 10/30/19 10:30 Actual Procedures p L1-2 micro d w/ poss HW revision - Alistair Cardozo MD Physical Therapy Treatment Note M2 PT-IP Current Condition Start: 10/31/19 12:29 Freq: NEEDED Status: Active Protocol: Document 10/31/19 09:49 AB (Rec: 10/31/19 12:42 AB [id number]) Physical Therapy Current Condition Current Condition Evaluation Date 10/31/19 Treatment Diagnosis s/p L1-2 L hemilami, microdisc and I&D; difficulty in walking Onset Date 10/29/2019 Precautions Lumbar Precautions Log Roll,No Twisting,Limit Bending,Lifting Restriction of 10 lbs,Gait Belt above Incisional Area M3 PT-IP Subjective Start: 10/31/19 12:29 Freq: NEEDED Status: Active Protocol: Document 11/01/19 14:51 CLB (Rec: 11/01/19 15:20 CLB [id number]) Subjective Physical Therapy Visit Type Type Treatment Note Visit Start Time 14:51 Visit Stop Time 15:07 Total Visit Minutes 16 Number of SHOT DROPPER Visits 3 Physical Therapy Visit Comments Patient Comments Pt willing to ambulate with therapy. Therapy Pain Assessment Pain When Pain Assessed During Mobility Pain Present Pain Present Pain Reported Location Left leg Intensity 6 Scale Used Numeric (1 - 10) Pain Management Techniques Modification of Treatment,Re- positioning,Timing of Activity with Medications M4 PT-IP Mobility and Gait Start: 10/31/19 12:29 Freq: NEEDED Status: Active Protocol: Document 11/01/19 14:51 CLB (Rec: 11/01/19 15:20 CLB [id number]) PT-Bed Mobility Assessment Rolling Type of Rolling Log Rolling Sit to Supine Sit to Supine Minimal Assistance,1 Person Assistance PT-Transfer Assessment Sit to and From Stand Sit to and from Stand Minimal Assistance,1 Person Assistance,Use of Upper Extremities Equipment Transfer Assistive Device Gait Belt,Front Wheeled Walker Orthotic/Prosthetic Devices or Brace: No Transfers Transfer Destination Bed,Chair Transfer Technique ambulated using FWW Transfer Ability Level of Assist Minimal Assistance,1 Person Assistance,Use of Upper Extremities Comments Mobility Comments Pt required Min A for sit- stand from chair and cues for proper hand placement and use of UE's. Pt required Min A of LE's into bed and cues and Min A for positioning in bed. Pt left in bed with alarm on, call light and all needs within reach and SCD's on bilateral LE's. Gait Assessment Gait Gait Assistance Required: Minimum Assistance,1 Person Assist Distance (Feet) 75 Assistive Devices Assistive Device Gait Belt,Front Wheeled Walker Gait Deviations General Gait Pattern Antalgic,Decreased Stride Length,Decreased Feet Clearance,Step-to Gait Factors Limiting Gait Function Factors Limiting Gait Function Decreased Activity Tolerance, Decreased Strength,Limited Range of Motion,Pain,Poor Balance,Poor Safety Awareness Comments Gait Comments Pt unable to ambulate as far this afternoon due to pain. Pt requires Min A and cues for walker management during turns . Stair Climbing Assessment Comments Stair Climbing Comments Pt unable this tx session due to pain. Pt requested trying tomorrow. M5 PT-IP Objective Assessments Start: 10/31/19 12:29 Freq: NEEDED Status: Active Protocol: Document 10/31/19 09:49 AB (Rec: 10/31/19 12:42 AB [id number]) Orientation Orientation/Cognition Level of Alertness Alert Orientation Name,Place,Situation Safety Awareness Decreased Safety Awareness Gross Range of Motion Lower Extremity ROM Assessment Within Functional Limits Strength Lower Extremity Strength Assessment Bilaterally Impaired Comments Strength Comments RLE: 4-/5 LLE 3+/5 Muscle Tone Muscle Tone WNL Yes M6 PT-IP Treatment Start: 10/31/19 12:29 Freq: NEEDED Status: Active Protocol: Document 10/31/19 15:45 LJ (Rec: 10/31/19 16:39 LJ [id number]) Physical Therapy Treatment Education Education Provided Precautions,Safety M7 PT-IP Assessment and Plan Start: 10/31/19 12:29 Freq: NEEDED Status: Active Protocol: Document 11/01/19 14:51 CLB (Rec: 11/01/19 15:20 CLB [id number]) PT Summary Assessment and Plan Potential Rehabilitation Potential Good Status of Condition at Evaluation Stable Summary Impairments Pain,ROM,Strength,Balance, Coordination,Sensation,Tone, Cognition,Bed Mobility, Transfers,Gait,Activity Tolerance Assessment Summary Pt continues to require Min A for all mobility and cues for posture,walker management and avoiding obstacles in tran. Pt requires assist with walker management with turns. Pt unable to trial stairs this session due to pain. Stair climbing with need to be completed if pt is to d/c home as well as CG training with . Goals Bed Mobility Goal Standby Assistance Transfer Goal Standby Assistance,Front Wheeled Walker Gait Goal Standby Assistance,Front Wheel Walker Gait Distance 200 Other Goals up/down 2 steps L rail descending SBA up/down 8 steps R rail ascend/ L rail descend SBA Days to Meet Goals 5 Frequency of Treatment Frequency Of Treatment Twice a Day Treatment Plan Physical Therapy Treatment Plan Bed Mobility Training,Transfer Training,Gait Training, Therapeutic Exercise,Balance Retraining,Post Op Education, Discharge Planning,Hot or Cold Pack,Neuromuscular Re-ed, Coordination Retraining,Manual Therapy Other Recommendations and Next Treatment stair training, CG training. Focus Recommendations To Nursing Amount of Assist Needed 1 Person Assist Discharge Recommendations PT Discharge Recommendations SNF Rehab
[2019-11-01] MEDS: OXYCODONE IR 10 MG TABLET PO ×3 (15:21→23:51)
[2019-11-01] MEDS: levoFLOXacin 750 MG/150 ML PIGGYBACK 100 MG IV (17:12)
[2019-11-01] MEDS: VANCOMYCIN 1,250 MG in SODIUM CHLORIDE 0.9% 250 ML IV (18:54)
[2019-11-01] MEDS: SENNOSIDES 8.6 MG TABLET 17.2 MG PO (20:23)
[2019-11-02] MEDS: VANCOMYCIN 1,250 MG in SODIUM CHLORIDE 0.9% 250 ML IV ×3 (02:30→19:25)
[2019-11-02] MEDS: ACETAMINOPHEN 325 MG TABLET 650 MG PO (02:30)
[2019-11-02] MEDS: OXYCODONE IR 10 MG TABLET PO (02:31)
[2019-11-02] MEDS: HYDROMORPHONE 4 MG TABLET PO ×6 (05:13→22:56)
[2019-11-02 05:40] VITALS: BP 141/88; PULSE 65; RESP 16; TEMP 36.7; O2SAT 93
[2019-11-02 08:00] VITALS: BP 141/78; PULSE 69; RESP 18; O2SAT 95
[2019-11-02 08:36] LABS: Add Manual Diff / Slide Review NO; Basophils Absolute Auto 100 /uL (0-100); Basophils Percent Auto 0.8 % (0-2); Eosinophils Absolute Auto 400 /uL (0-450); Eosinophils Percent Auto 3.7 % (2-4); Hematocrit 39.3 % (41-53); Hemoglobin 13.2 g/dL (13.5-17.5); Lymphocytes Absolute Auto 2500 /uL (1100-4500); Lymphocytes Percent Auto 26.9 % (25-40); Mean Corpuscular HGB Conc 33.6 % (30-36); Mean Corpuscular Hemoglobin 29.7 PG (26-34); Mean Corpuscular Volume 88.3 fL (80-100); Monocytes Absolute Auto 800 /uL (0-900); Monocytes Percent Auto 8.5 % (3-14); Neutrophils Absolute Auto 5600 /uL (1500-7000); Neutrophils Percent Auto 60.1 % (50-75); Platelet Count 510 X10^3/uL (150-400); Red Blood Cell Count 4.45 X10^6/uL (4.5-5.9); Red Cell Distribution Width 13.5 % (11.6-14.8); White Blood Cell Count 9.4 X10^3/uL (4.5-11.0)
[2019-11-02 08:47] LABS: BUN Creatinine Ratio 24.3 (6-22); Blood Urea Nitrogen 17 mg/dL (9-20); C-Reactive Protein Quant 7.8 mg/dL (<1.0); Carbon Dioxide 29 mmol/L (22-32); Chloride 100 mmol/L (98-107); Estimated Glomerular Filt Rate > 60.0 mL/min (>60); Glucose 131 mg/dL (80-110); HEMOLYSIS 32 (0-50); Potassium 4.1 mmol/L (3.4-5.1); Sodium 139 mmol/L (137-145)
[2019-11-02 08:49] LABS: Erythrocyte Sedimentation Rate 53 MM/HR (0-15)
[2019-11-02] MEDS: DOCUSATE 100 MG CAPSULE PO ×2 (08:49→21:10)
[2019-11-02] MEDS: diazePAM 5 MG TABLET PO ×2 (08:49→21:10)
[2019-11-02] MEDS: hydrOXYzine pamoate 25 MG CAPSULE PO ×5 (08:50→22:56)
--- NOTE | 2019-11-02 09:48 | PC.NURSE ---
Addendum entered by Selina Hodges R.N. 11/02/19 12:35: IV/ABX/MS - pt periph iv sites both leaking during infusion sarah benson rn attempts x2 unsuccessful, spoke to Hanh Lopez and Dr. Juliane dunn nurse and lab, the micro won't be available most likely until tomorrow, will place periph line now and if needed tomorrow, Hanh can then place PICC. Given 4mg po dilaudid for pain 6 on scale 0/10 when not moving, when ret to bed, states pain and spasm lle has increased during mobilization. Original Note: AM NOTE - pt is alert, sitting upright in bed this am, states llq discomfort continues, rates at 8 on scale 0/10, discussed medications, MARLENA Austin in this am and will continue with dilaudid po, states best relief when vistaril added, does have prior hx numbness feet, able feel sensation and move and wiggle independently, pt assisted oob w/fww, slowly ambul to br w/void, ret to bed and finished breakfast, given 4mg po dilaudid and 25mg po vistaril, later reported pain 6 on scale 0/10, able to get into shower and then ret to chair, reports incr discomfort after movement, positioned comfort, ice pack applied.
[2019-11-02] MEDS: SODIUM CHLORIDE 0.9% FLUSH 10 ML IV (10:08)
--- NOTE | 2019-11-02 10:41 | CM.DPC ---
Addendum entered by [place] R.N. 11/02/19 15:26: Will fax today's P.T. note to Derick. Spoke to patient who is now on precautions. Stated that orthopedist had spoken to patient and stated that cultures and sensitivity are pending, and will give him some strong antibiotics tonight. Should have results by tomorrow. Patient was ambulating with P.T. when this telephonic nurse case manager came in. Let him know that referral has been sent to [facility] as well. [facility] also called and stated that they can accept patient. Addendum entered by [place] R.N. 11/02/19 11:21: Claudia in admissions from [facility] in [place] called back. Stated, clinically they should be able to accept, will have to see about tomorrow, but is hopeful that they will have a bed. Admissions cell phone at [facility] is: [phone]. Original Note: DCP Cont: Spoke to Derick Matos telephonic nurse case manager. Re-emphasized about patient needing fci services. She is reviewing, sent her yesterday's P.T. notes, and will send today's when available. Had just spoken to patient and , and they are now requesting [facility], since patient lives on [address]. Referral was already sent to [facility], from 's initial request, but stated, [facility] is closer to where they live. Went ahead and sent referral to [facility], had spoken to Sury in admissions at [facility]. Stated, they may have availability tomorrow, but beds are filling up. They are expecting some discharges tomorrow. and patient are wanting to talk to orthopedist before making decision, for other option is home infusions. This is also dependent upon cultures. P: DCP will continue to check in with patient, and [employer]. America Bay RN/Fuel Cell Engineer
[2019-11-02 12:05] VITALS: BP 146/85; PULSE 77; RESP 16; TEMP 36.8; O2SAT 95
--- NOTE | 2019-11-02 14:39 | PT.IPTN ---
Surgery Performed Operation Date: 10/30/19 10:30 Actual Procedures p L1-2 micro d w/ poss HW rosa - Alistair Cardozo MD Physical Therapy Treatment Note M2 PT-IP Current Condition Start: 10/31/19 12:29 Freq: NEEDED Status: Active Protocol: Document 10/31/19 09:49 AB (Rec: 10/31/19 12:42 AB [id number]) Physical Therapy Current Condition Current Condition Evaluation Date 10/31/19 Treatment Diagnosis s/p L1-2 L hemilami, microdisc and I&D; difficulty in walking Onset Date 10/29/2019 Precautions Lumbar Precautions Log Roll,No Twisting,Limit Bending,Lifting Restriction of 10 lbs,Gait Belt above Incisional Area M3 PT-IP Subjective Start: 10/31/19 12:29 Freq: NEEDED Status: Active Protocol: Document 11/02/19 14:38 LJ (Rec: 11/02/19 14:39 LJ [id number]) Subjective Physical Therapy Visit Type Type Patient Unavailable Notes Pt was checked on x2 in am but both thime he was unavailable due to showering and nursing proceedure M4 PT-IP Mobility and Gait Start: 10/31/19 12:29 Freq: NEEDED Status: Active Protocol: Document 11/01/19 14:51 CLB (Rec: 11/01/19 15:20 CLB [id number]) PT-Bed Mobility Assessment Rolling Type of Rolling Log Rolling Sit to Supine Sit to Supine Minimal Assistance,1 Person Assistance PT-Transfer Assessment Sit to and From Stand Sit to and from Stand Minimal Assistance,1 Person Assistance,Use of Upper Extremities Equipment Transfer Assistive Device Gait Belt,Front Wheeled Walker Orthotic/Prosthetic Devices or Brace: No Transfers Transfer Destination Bed,Chair Transfer Technique ambulated using FWW Transfer Ability Level of Assist Minimal Assistance,1 Person Assistance,Use of Upper Extremities Comments Mobility Comments Pt required Min A for sit- stand from chair and cues for proper hand placement and use of UE's. Pt required Min A of LE's into bed and cues and Min A for positioning in bed. Pt left in bed with alarm on, call light and all needs within reach and SCD's on bilateral LE's. Gait Assessment Gait Gait Assistance Required: Minimum Assistance,1 Person Assist Distance (Feet) 75 Assistive Devices Assistive Device Gait Belt,Front Wheeled Walker Gait Deviations General Gait Pattern Antalgic,Decreased Stride Length,Decreased Feet Clearance,Step-to Gait Factors Limiting Gait Function Factors Limiting Gait Function Decreased Activity Tolerance, Decreased Strength,Limited Range of Motion,Pain,Poor Balance,Poor Safety Awareness Comments Gait Comments Pt unable to ambulate as far this afternoon due to pain. Pt requires Min A and cues for walker management during turns . Stair Climbing Assessment Comments Stair Climbing Comments Pt unable this tx session due to pain. Pt requested trying tomorrow. M5 PT-IP Objective Assessments Start: 10/31/19 12:29 Freq: NEEDED Status: Active Protocol: Document 10/31/19 09:49 AB (Rec: 10/31/19 12:42 AB [id number]) Orientation Orientation/Cognition Level of Alertness Alert Orientation Name,Place,Situation Safety Awareness Decreased Safety Awareness Gross Range of Motion Lower Extremity ROM Assessment Within Functional Limits Strength Lower Extremity Strength Assessment Bilaterally Impaired Comments Strength Comments RLE: 4-/5 LLE 3+/5 Muscle Tone Muscle Tone WNL Yes M6 PT-IP Treatment Start: 10/31/19 12:29 Freq: NEEDED Status: Active Protocol: Document 10/31/19 15:45 LJ (Rec: 10/31/19 16:39 LJ [id number]) Physical Therapy Treatment Education Education Provided Precautions,Safety M7 PT-IP Assessment and Plan Start: 10/31/19 12:29 Freq: NEEDED Status: Active Protocol: Document 11/01/19 14:51 CLB (Rec: 11/01/19 15:20 CLB [id number]) PT Summary Assessment and Plan Potential Rehabilitation Potential Good Status of Condition at Evaluation Stable Summary Impairments Pain,ROM,Strength,Balance, Coordination,Sensation,Tone, Cognition,Bed Mobility, Transfers,Gait,Activity Tolerance Assessment Summary Pt continues to require Min A for all mobility and cues for posture,walker management and avoiding obstacles in tran. Pt requires assist with walker management with turns. Pt unable to trial stairs this session due to pain. Stair climbing with need to be completed if pt is to d/c home as well as CG training with . Goals Bed Mobility Goal Standby Assistance Transfer Goal Standby Assistance,Front Wheeled Walker Gait Goal Standby Assistance,Front Wheel Walker Gait Distance 200 Other Goals up/down 2 steps L rail descending SBA up/down 8 steps R rail ascend/ L rail descend SBA Days to Meet Goals 5 Frequency of Treatment Frequency Of Treatment Twice a Day Treatment Plan Physical Therapy Treatment Plan Bed Mobility Training,Transfer Training,Gait Training, Therapeutic Exercise,Balance Retraining,Post Op Education, Discharge Planning,Hot or Cold Pack,Neuromuscular Re-ed, Coordination Retraining,Manual Therapy Other Recommendations and Next Treatment stair training, CG training. Focus Recommendations To Nursing Amount of Assist Needed 1 Person Assist Discharge Recommendations PT Discharge Recommendations SNF Rehab
--- NOTE | 2019-11-02 15:12 | OT.IP.TRT ---
Surgery Performed Operation Date: 10/30/19 10:30 Actual Procedures p L1-2 micro d w/ poss HW rosa - Alistair Cardozo MD Occupational Therapy Treatment Note M2 OT-IP Current Condition Start: 10/31/19 11:55 Freq: Status: Active Protocol: Document 10/31/19 11:56 CGR (Rec: 10/31/19 12:24 CGR [email or web address]) Occupational Therapy Current Condition Current Condition Evaluation Date 10/31/19 Treatment Diagnosis Emergent L1-2 lami/ decompression with debridement of epidural lesion. Diagnosis Onset Date 10/30/19 Post Operative Precautions Lumbar Precautions Log Roll,No Twisting,Limit Bending,Lifting Restriction of 10 lbs,Gait Belt above Incisional Area M3 OT- IP Subjective and Pain Start: 10/31/19 11:55 Freq: Status: Active Protocol: Document 11/02/19 14:49 CCC (Rec: 11/02/19 15:12 CCC [email or web address]) OT- Subjective Occupational Therapy Visit Type Type Treatment Note Visit Start Time 14:06 Visit Stop Time 14:24 Total Visit Minutes 18 Occupational Therapy Visit Comments Patient Comments Pt wanting to get up to walk as already showered and did grooming earlier. OT Pain Assessment Pain When Pain Assessed During Mobility Pain Present Pain Present Pain Reported M4 OT- IP ADL's Start: 10/31/19 11:55 Freq: Status: Active Protocol: Document 10/31/19 11:56 CGR (Rec: 10/31/19 12:24 CGR [email or web address]) OT [id number] Comments OT Self-Feeding Comments Not meal time OT ADL-Grooming General Evaluation Grooming Ability Standby Assistance Areas Needing Assistance Retrieving/Set-up of Grooming Items,Face Washing Comments OT Grooming Comments seated in chair OT ADL-Oral Care General Eval Oral Care Ability Standby Assistance Areas of Assistance Brushing Teeth,Retrieving/Set- Up of Items Comments Oral Care Comments seated in chair OT ADL-Dressing Comments OT Dressing Comments Not performed in this session. OT ADL-Toileting Comments OT Toileting Comments Not performed in this session, pt just had monge removed and stated no need for urination. OT ADL-Bathing Comments OT Bathing Comments Not performed in this session M5 OT- IP IADL's Start: 10/31/19 11:55 Freq: Status: Active Protocol: Document 10/31/19 11:56 CGR (Rec: 10/31/19 12:24 CGR [email or web address]) OT-Instrumental Activities of Daily Living Deficits IADL Deficits Identified No Deficits Home Safety Awareness Awareness of Need for Assistance at Home Good Awareness Ability to Problem Solve Emergency Able to Problem Solve Situations Medication Management Medication Management No Deficits Identified Money Management Money Management No Deficits Identified Meal Preparation Meal Preparation Caregiver Provides Assist Reel Tender Reel Tender Caregiver Provides Assist Driving Driving Comments 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 M6 OT- IP Functional Cognition Start: 10/31/19 11:55 Freq: Status: Active Protocol: Document 11/02/19 14:49 CCC (Rec: 11/02/19 15:12 [facility] [email or web address]) Cognitive Factors Limiting Selfcare Function Cognitive Ability Level of Alertness Alert Patient Orientation Name,Age,Birthday,Month,Date, Year,Day of Week,Place, Situation Attention Span Ability Capable of Focused Attention, Capable of Sustained Attention Ability to Follow Commands Able to Follow One Step Commands Memory Description Short Term Impaired Cognitive Comments Cognitive Assessment Comments Pt states not able to think well when he is having pain and needing reminders for back precautions. M7 OT- IP Mobility and Balance Start: 10/31/19 11:55 Freq: Status: Active Protocol: Document 11/02/19 14:49 [facility] (Rec: 11/02/19 15:12 [facility] [email or web address]) OT-Transfer Assessment Sit to and From Stand Sit to and from Stand Minimal Assistance,Moderate Assistance Transfers Transfer Ability Contact Guard Assistance Technique Transfer Destination Bed Transfer Technique Stand Step Pivot Devices Transfer Assistive Devices Gait Belt,Front Wheeled Walker Comments Mobility Comments Pt having difficulty to transition from sitting to standing and having to slide his left leg forwards due to pain. Pt needing CARMELLA to stand, and MOD A from lower surfaces. In addition when coming from standing to sitting needing to slide his leg forwards but having difficulty to keep his back straight by leaning forwards at the hips to sit. Pt states needing assist to get into the shower but able to shower while seated on his our except needing assist to stand for pericare needs. OT- Balance Assessment Sitting Balance and Reactions Static Sitting Balance Ability Normal Dynamic Sitting Balance Ability Good M8 OT- IP Objective Assessments Start: 10/31/19 11:55 Freq: Status: Active Protocol: Document 10/31/19 11:56 CGR (Rec: 10/31/19 12:24 CGR [email or web address]) OT Gross Range of Motion Upper Extremity Range of Motion Assessment Within Functional Limits OT Strength Upper Extremity Strength Assessment Within Functional Limits OT- Coordination Assessment Upper Extremity Finger to Nose Test Within Functional Limits Finger Tapping Test Within Functional Limits OT-Muscle Tone Assessment Muscle Tone WNL Yes OT Sensation Assessment Comments Summary Comments No deficits Edema Edema Absent M9 OT- IP Assessment and Plan Start: 10/31/19 11:55 Freq: Status: Active Protocol: Document 11/02/19 14:49 [facility] (Rec: 11/02/19 15:12 [facility] [email or web address]) OT Summary Assessment and Plan Potential Rehabilitation Potential Excellent Analytic Complexity at Evaluation Low Summary OT Impairments Pain,Strength,Balance, Functional Cognition, Functional Mobility,Grooming, Dressing,Toileting,Bathing, Toilet Transfers,Shower Transfers Progress Towards Goals Progressing Toward Goals Assessment Summary Pt main barrier is steps and still having left lower extremity pain which limits his ability to come to standing and sitting. Pt would benefit from short term rehab versus skilled rehab as pt's just recovering from recent surgery. Goals Grooming Goal Independent Dressing Goal Independent Toileting Goal Independent Bathing Goal Independent Toilet Transfer Goal Independent Days to Meet Goals 4 Frequency of Treatment Frequency Of Treatment Once a Day Treatment Plan OT Treatment Plan ADL Training,Functional Mobility,Patient/Family Education,Discharge Planning Discharge Recommendations OT Discharge Recommendations SNF Rehab
--- NOTE | 2019-11-02 15:50 | PT.IPTN ---
Surgery Performed Operation Date: 10/30/19 10:30 Actual Procedures p L1-2 micro d w/ poss HW rosa - Alistair Cardozo MD Physical Therapy Treatment Note M2 PT-IP Current Condition Start: 10/31/19 12:29 Freq: NEEDED Status: Active Protocol: Document 10/31/19 09:49 AB (Rec: 10/31/19 12:42 AB [id number]) Physical Therapy Current Condition Current Condition Evaluation Date 10/31/19 Treatment Diagnosis s/p L1-2 L hemilami, microdisc and I&D; difficulty in walking Onset Date 10/29/2019 Precautions Lumbar Precautions Log Roll,No Twisting,Limit Bending,Lifting Restriction of 10 lbs,Gait Belt above Incisional Area M3 PT-IP Subjective Start: 10/31/19 12:29 Freq: NEEDED Status: Active Protocol: Document 11/02/19 15:00 LJ (Rec: 11/02/19 15:50 LJ [email or web address]) Subjective Physical Therapy Visit Type Type Treatment Note Visit Start Time 15:00 Visit Stop Time 15:24 Total Visit Minutes 24 Physical Therapy Visit Comments Patient Comments Pt in chair willing to participate with PT Therapy Pain Assessment Pain When Pain Assessed During Mobility Pain Present Pain Present Pain Reported M4 PT-IP Mobility and Gait Start: 10/31/19 12:29 Freq: NEEDED Status: Active Protocol: Document 11/02/19 15:00 LJ (Rec: 11/02/19 15:50 LJ [email or web address]) PT-Bed Mobility Assessment Rolling Type of Rolling Log Rolling Sit to Supine Sit to Supine Minimal Assistance,1 Person Assistance PT-Transfer Assessment Sit to and From Stand Sit to and from Stand Contact Guard Assistance,1 Person Assistance,Use of Upper Extremities Equipment Transfer Assistive Device Gait Belt,Front Wheeled Walker Orthotic/Prosthetic Devices or Brace: No Transfers Transfer Destination Bed,Chair Transfer Technique ambulated using FWW Transfer Ability Level of Assist Standby Assistance,Contact Guard Assistance,Minimal Assistance,1 Person Assistance ,Use of Upper Extremities Comments Mobility Comments Pt required [place] with LEs when getting into and out of bed. SBA-CGA sit<>stand from chair and bed. Gait Assessment Gait Gait Assistance Required: Standby Assistance,Contact Guard Assist Distance (Feet) 35 Assistive Devices Assistive Device Gait Belt,Front Wheeled Walker Gait Deviations General Gait Pattern Antalgic,Decreased Stride Length,Decreased Feet Clearance,Step-to Gait Factors Limiting Gait Function Factors Limiting Gait Function Decreased Activity Tolerance, Decreased Strength,Limited Range of Motion,Pain,Poor Balance,Poor Safety Awareness Comments Gait Comments Pt ambulated in room this session in part because he was just up walking with OT and he stated he didn't want to go out to hallway. Pt complains of high level of pain when he is near end range in sittingor standing in his LLE (TFL). M5 PT-IP Objective Assessments Start: 10/31/19 12:29 Freq: NEEDED Status: Active Protocol: Document 10/31/19 09:49 AB (Rec: 10/31/19 12:42 AB [id number]) Orientation Orientation/Cognition Level of Alertness Alert Orientation Name,Place,Situation Safety Awareness Decreased Safety Awareness Gross Range of Motion Lower Extremity ROM Assessment Within Functional Limits Strength Lower Extremity Strength Assessment Bilaterally Impaired Comments Strength Comments RLE: 4-/5 LLE 3+/5 Muscle Tone Muscle Tone WNL Yes M6 PT-IP Treatment Start: 10/31/19 12:29 Freq: NEEDED Status: Active Protocol: Document 11/02/19 15:00 LJ (Rec: 11/02/19 15:50 LJ [email or web address]) Physical Therapy Treatment Exercises Exercises Gluteal Sets,Quad Sets,Heel Slides,Straight Leg Raises Education Education Provided Precautions,Safety Other Treatments Other Treatment Performed STM to iliopsoas, TFL, and ITB of LLE M7 PT-IP Assessment and Plan Start: 10/31/19 12:29 Freq: NEEDED Status: Active Protocol: Document 11/02/19 15:00 LJ (Rec: 11/02/19 15:50 LJ [email or web address]) PT Summary Assessment and Plan Potential Rehabilitation Potential Good Status of Condition at Evaluation Stable Summary Impairments Pain,ROM,Strength,Balance, Coordination,Sensation,Tone, Cognition,Bed Mobility, Transfers,Gait,Activity Tolerance Assessment Summary Pt requires cueing for precautions and safety. In sit <>stand activities pt endorses acute and extreme pain in left anterior hip which causes him to stop descent into chair or need to attempt several times to stand. Pt states several times he felt like his hip was going to collapse on him when lowering or rising to /from chair. Pt has soft tissue restrictions throughout left hip region extending to knee which responded positively to STM lessoning pain somewhat. Goals Bed Mobility Goal Standby Assistance Transfer Goal Standby Assistance,Front Wheeled Walker Gait Goal Standby Assistance,Front Wheel Walker Gait Distance 200 Other Goals up/down 2 steps L rail descending SBA up/down 8 steps R rail ascend/ L rail descend SBA Days to Meet Goals 5 Frequency of Treatment Frequency Of Treatment Twice a Day Treatment Plan Physical Therapy Treatment Plan Bed Mobility Training,Transfer Training,Gait Training, Therapeutic Exercise,Balance Retraining,Post Op Education, Discharge Planning,Hot or Cold Pack,Neuromuscular Re-ed, Coordination Retraining,Manual Therapy Other Recommendations and Next Treatment stair training, CG training. Focus Recommendations To Nursing Amount of Assist Needed 1 Person Assist Discharge Recommendations PT Discharge Recommendations SNF Rehab Equipment Needed for Home Before FWW Discharge
[2019-11-02 16:02] VITALS: BP 139/77; PULSE 73; RESP 17; TEMP 36.3
--- NOTE | 2019-11-02 16:06 | PM.PN.1 ---
Exam Vital Signs (past 8 hours): - 11/02/19 12:05 11/02/19 16:02 Temperature 98.3 F 97.4 F L Pulse Rate 77 73 Respiratory Rate 16 17 Blood Pressure 146/85 H 139/77 Pulse Oximetry 95 Oxygen Delivery Method Room Air Oxygen Flow Rate 0 Objective Labs Result Diagrams: 11/02/19 08:21 11/02/19 08:14 Labs: Laboratory Results - last 24 hr 11/02/19 11/02/19 08:14 08:21 WBC 9.4 RBC 4.45 L Hgb 13.2 L Hct 39.3 L MCV 88.3 MCH 29.7 MCHC 33.6 RDW 13.5 Plt Count 510 H Neut % (Auto) 60.1 Lymph % (Auto) 26.9 [place] % (Auto) 8.5 Eos % (Auto) 3.7 Baso % (Auto) 0.8 Neut # (Auto) 5600 Lymph # (Auto) 2500 [place] # (Auto) 800 Eos # (Auto) 400 Baso # (Auto) 100 ESR 53 H Sodium 139 Potassium 4.1 Chloride 100 Carbon Dioxide 29 BUN 17 Creatinine 0.70 Estimated GFR > 60.0 BUN/Creatinine Ratio 24.3 H Glucose 131 H Calcium 10.0 C-Reactive Protein 7.8 H Assessment & Plan Assessment & Plan narrative: Mr. Muro is here for treatment of hematogenous discitis with rupture resulting in acute onset pain and radiculopathy. He is s/p I&D 3 days ago. His WBC has normalized. His pain is still significant but improved comparing to before surgery. He had a large piece of extruded disc fragment that was removed from the epidural space along with small amount of cloudy purulent fluid. He will have a PICC line placed tomorrow and he will be on IV antibiotic therapy for 3-4 weeks. I will check his final culture results and place him on narrower spectrum antibiotic for discharge. Continue current pain management. I discussed with the covering nurse since his nurse was on break that he does and will continue to require close monitor and management of his pain since he is in severe back pain and radiculopathy.
--- NOTE | 2019-11-02 16:10 | P.PN_ITS ---
Subjective Subjective Date Patient Seen: 11/02/19 Interval history: Patient is POD#3 s/p L1-2 left hemilaminectomy, L1-2 microdiscectomy, L1-2 irrigation debridement of epidural space with Dr. Cardozo. Continues to have moderate to severe right lower extremity pain. Some relief with Oxycodone/Vistaril combination. Orders in place for Dilaudid which has also provided some relief. No bowel or bladder changes. No nausea or vomiting. Exam Vital Signs (past 8 hours): - 11/02/19 12:05 11/02/19 16:02 Temperature 98.3 F 97.4 F L Pulse Rate 77 73 Respiratory Rate 16 17 Blood Pressure 146/85 H 139/77 Pulse Oximetry 95 Oxygen Delivery Method Room Air Oxygen Flow Rate 0 Narrative Exam Narrative: Patient resting in bed in some discomfort. Alert and oriented. at the bedside. Dressing in place is CDI. 5/5 in BLE. Palpable pedal pulse. Calves soft, compressible. Objective Labs Result Diagrams: 11/02/19 08:21 11/02/19 08:14 Labs: Laboratory Results - last 24 hr 11/02/19 11/02/19 08:14 08:21 WBC 9.4 RBC 4.45 L Hgb 13.2 L Hct 39.3 L MCV 88.3 MCH 29.7 MCHC 33.6 RDW 13.5 Plt Count 510 H Neut % (Auto) 60.1 Lymph % (Auto) 26.9 [place] % (Auto) 8.5 Eos % (Auto) 3.7 Baso % (Auto) 0.8 Neut # (Auto) 5600 Lymph # (Auto) 2500 [place] # (Auto) 800 Eos # (Auto) 400 Baso # (Auto) 100 ESR 53 H Sodium 139 Potassium 4.1 Chloride 100 Carbon Dioxide 29 BUN 17 Creatinine 0.70 Estimated GFR > 60.0 BUN/Creatinine Ratio 24.3 H Glucose 131 H Calcium 10.0 C-Reactive Protein 7.8 H Assessment & Plan Assessment & Plan narrative: -Discitis: Cultures still pending, currently showing gram positive bacilli. Labs today show decrease in WBC from 12.3 to 9.4 as well as CRP from 8.3 to 7.8. Continue Vancomycin/Levaquin until cultures finalized. Will discuss plans for final antibiotic and duration of treatment with Dr. Cardozo once resulted. Anticipate this tomorrow. PICC line ordered today, likely will be placed tomorrow in anticipation of outpatient IV antibiotics. -Pain control: Will try combination of Dilaudid/Vistaril today. One time dose of Decadron 4mg given previously with no results, will retry this as one time 10mg dose as majority of his symptoms remain in the extremity. -Patient should continue to mobilize with PT. If mobility improves will consider home with home health vs SNF if no improvement in mobility. Also dependent on final antibiotic availability.
[2019-11-02] MEDS: DEXAMETHASONE 10 MG/ML VIAL IV (16:56)
[2019-11-02] MEDS: HYDROMORPHONE 0.5 MG INJ IV (17:01)
[2019-11-02] MEDS: levoFLOXacin 750 MG/150 ML PIGGYBACK 100 MG IV (17:44)
[2019-11-02] MEDS: SODIUM CHLORIDE 0.9% 250 ML 21 ML IV (17:45)
[2019-11-02 18:07] LABS: Vancomycin Trough 16.7 ug/mL (10-20)
[2019-11-02] MEDS: VANCOMYCIN TROUGH 1 REQUEST MISC (19:25)
[2019-11-02 19:55] VITALS: BP 148/89; PULSE 84; RESP 18; TEMP 36.9
--- NOTE | 2019-11-02 20:58 | PC.NURSE ---
A&OX3. pt c/o pain 7/10. administered 4mg Dilaudid and 25mg Vistaril, but was not effective and pain escalated to 10/10. Administered decadron and Dilaudid 0.5mg, pt's pain went down to 7/10 and eventually fell asleep. Pt is slow to move, pt able to get in and out of bed independently. Pt voiding and eliminating without difficulty. SBA to BR w/FWW.
[2019-11-02] MEDS: SENNOSIDES 8.6 MG TABLET 17.2 MG PO (21:10)
[2019-11-02 23:00] VITALS: BP 154/92; PULSE 87; RESP 16; TEMP 35.7; O2SAT 94
[2019-11-03] MEDS: HYDROMORPHONE 4 MG TABLET PO ×5 (02:01→22:35)
[2019-11-03] MEDS: VANCOMYCIN 1,250 MG in SODIUM CHLORIDE 0.9% 250 ML IV ×3 (02:01→14:14)
[2019-11-03] MEDS: hydrOXYzine pamoate 25 MG CAPSULE PO ×4 (02:01→22:35)
--- NOTE | 2019-11-03 03:21 | PC.NURSE ---
Addendum entered by Kezia Anthony R.N. 11/03/19 04:07: Dressing is clean/dry and intact. Original Note: Patient is AxOx3, VSS, Lung sounds clear bilaterally. Pain control 4-02/27. Patient medicated with dilaudid 4mg Q3 and Vistaril 25mg Q3. Continuing to monitor for changes or breakthrough pain. Patient is practicing log roll, and using IS. Patient is up to the bathroom stand by assist w/ FWW. Continues to be on IV Vanco Q8. Contact precautions.
[2019-11-03 03:31] VITALS: BP 141/80; PULSE 82; RESP 16; TEMP 36.8; O2SAT 92
[2019-11-03 08:00] VITALS: BP 147/84; PULSE 76; RESP 18; TEMP 36.3; O2SAT 97
[2019-11-03] MEDS: DOCUSATE 100 MG CAPSULE PO ×2 (08:51→21:46)
--- NOTE | 2019-11-03 10:03 | PC.NURSE ---
Addendum entered by Tami Barbour R.N. 11/04/19 06:47: late entry for 11/03 day shift. IV Vancomycin given late due to PICC being placed to [facility] where current PIV is. After PICC placement confirmed by XRAY, Tracy RN was going to administer 1000 dose of vancomycin at 1230. Tracy RN reported, pt's would like more clear answers as to why the patient has to be on vancomycin for a culture that results as a skin bacteria. This RN spoke with MARLENA Garcia and made aware that pt's would like more clarification. After clarification, Vancomycin administered, 1/3 way through administration, antibiotic changed to Ceftriaxone. Pt and his Gurea aware. Guera stated now that the antibiotic only needs to be administered once daily, she would like to try and set up outpatient infusions at a facility and discharge patient to home. Message left for corporate planner at 1430. Original Note: Day Shift- Per Infection Control physician Dr. Lino, pt does not need to be in Contact Isolation. This RN reported the pt's surgical back dressing was CDI, no drainage.
--- NOTE | 2019-11-03 10:45 | PT.IPTN ---
Surgery Performed Operation Date: 10/30/19 10:30 Actual Procedures p L1-2 micro d w/ poss HW revision - Alistair Cardozo MD Physical Therapy Treatment Note M2 PT-IP Current Condition Start: 10/31/19 12:29 Freq: NEEDED Status: Active Protocol: Document 10/31/19 09:49 AB (Rec: 10/31/19 12:42 AB [id number]) Physical Therapy Current Condition Current Condition Evaluation Date 10/31/19 Treatment Diagnosis s/p L1-2 L hemilami, microdisc and I&D; difficulty in walking Onset Date 10/29/2019 Precautions Lumbar Precautions Log Roll,No Twisting,Limit Bending,Lifting Restriction of 10 lbs,Gait Belt above Incisional Area M3 PT-IP Subjective Start: 10/31/19 12:29 Freq: NEEDED Status: Active Protocol: Document 11/03/19 10:45 AB (Rec: 11/03/19 11:41 AB [id number]) Subjective Physical Therapy Visit Type Type Treatment Note Visit Start Time 10:45 Visit Stop Time 11:09 Total Visit Minutes 24 Number of ANIMAL CYTOLOGIST Visits 0 Physical Therapy Visit Comments Patient Comments pt agreeable to do PT Therapy Pain Assessment Pain When Pain Assessed At Rest Pain Present Pain Present Pain Reported Location Back Intensity 2 Scale Used 4/10 after ambulation Pain Management Techniques Apply Cold,Timing of Activity with Medications M4 PT-IP Mobility and Gait Start: 10/31/19 12:29 Freq: NEEDED Status: Active Protocol: Document 11/03/19 10:45 AB (Rec: 11/03/19 11:41 AB [id number]) PT-Bed Mobility Assessment Supine to Sit Supine to Sit Standby Assistance,Head of Bed Elevated PT-Transfer Assessment Sit to and From Stand Sit to and from Stand Standby Assistance Equipment Transfer Assistive Device Gait Belt,Front Wheeled Walker Orthotic/Prosthetic Devices or Brace: No Comments Mobility Comments pt requires cues for safety. pt put FWW aside when about to sit on chair and was twisting to sit down. instructed pt to have FWW in front of him as not to twist. pt agreed. Gait Assessment Gait Gait Assistance Required: Standby Assistance Distance (Feet) 350 Able to Maintain Weight Bearing Status Yes During Gait Assistive Devices Assistive Device Gait Belt,Front Wheeled Walker Orthotic/Prosthetic Devices or Brace: No Factors Limiting Gait Function Factors Limiting Gait Function Decreased Strength,Pain,Poor Balance,Poor Safety Awareness Comments Gait Comments pt agreeable to do PT. completed supine to sit SBA. sit to stand SBA and ambulated ~ 350 ft using FWW SBA. completed stairs and ambulated back to the room ~ 350 ft using FWW SBA. agreed to sit up on chair. call light and table placed within reach. Stair Climbing Assessment Evaluation Level of Assist On Stairs Contact Guard Assistance, Minimal Assistance Devices Stair Climbing Assistive Devices Right Railing Technique/Endurance Stair Climbing Direction Ascend and Descend Stair Climbing Technique Step to Step Number of Steps Climbed 3 Stair Climbing Set # Repetitions (reps) 2 Comments Stair Climbing Comments pt completed up/down steps using R rails ascending with pt holding with one hand CGA and repeated with pt holding on to rail with 2 hands CGA. pt stated that he feels steadier holding with 2 hands. M5 PT-IP Objective Assessments Start: 10/31/19 12:29 Freq: NEEDED Status: Active Protocol: Document 10/31/19 09:49 AB (Rec: 10/31/19 12:42 AB [id number]) Orientation Orientation/Cognition Level of Alertness Alert Orientation Name,Place,Situation Safety Awareness Decreased Safety Awareness Gross Range of Motion Lower Extremity ROM Assessment Within Functional Limits Strength Lower Extremity Strength Assessment Bilaterally Impaired Comments Strength Comments RLE: 4-/5 LLE 3+/5 Muscle Tone Muscle Tone WNL Yes M6 PT-IP Treatment Start: 10/31/19 12:29 Freq: NEEDED Status: Active Protocol: Document 11/03/19 10:45 AB (Rec: 11/03/19 11:41 AB [id number]) Physical Therapy Treatment Education Education Provided Precautions,Safety M7 PT-IP Assessment and Plan Start: 10/31/19 12:29 Freq: NEEDED Status: Active Protocol: Document 11/03/19 10:45 AB (Rec: 11/03/19 11:41 AB [id number]) PT Summary Assessment and Plan Potential Rehabilitation Potential Good Summary Impairments Pain,ROM,Strength,Balance, Coordination,Sensation,Tone, Cognition,Bed Mobility, Transfers,Gait,Activity Tolerance Progress Towards Goals Progressing Toward Goals Assessment Summary pt progressing with mobility requiring SBA and cues for safety. d/c plan depending on antiobiotic needs. picc line placement is anticipated today. as far as mobility needs, pt is doing well and only needs SBA for transfers and ambulation, CGA for stairs but safety awareness is decreased with poor safety judgement especially when fatigued. Goals Bed Mobility Goal Standby Assistance Transfer Goal Standby Assistance,Front Wheeled Walker Gait Goal Standby Assistance,Front Wheel Walker Gait Distance 200 Other Goals up/down 2 steps L rail descending SBA up/down 8 steps R rail ascend/ L rail descend SBA Days to Meet Goals 5 Frequency of Treatment Frequency Of Treatment Twice a Day Treatment Plan Physical Therapy Treatment Plan Bed Mobility Training,Transfer Training,Gait Training, Therapeutic Exercise,Balance Retraining,Post Op Education, Discharge Planning,Hot or Cold Pack,Neuromuscular Re-ed, Coordination Retraining,Manual Therapy Other Recommendations and Next Treatment stair training, CG training. Focus Recommendations To Nursing Amount of Assist Needed 1 Person Assist Discharge Recommendations PT Discharge Recommendations SNF Rehab
--- NOTE | 2019-11-03 10:48 | PM.PNPO.1 ---
Subjective Subjective Date Patient Seen: 11/03/19 Time Patient Seen: 10:00 Interval history: Patient is POD#4 s/p L1-2 left hemilaminectomy, L1-2 microdiscectomy, L1-2 irrigation debridement of epidural space with Dr. Cardozo. Patient continues to have moderate pain in lower back. Some improvement with addition of dilaudid yesterday. Progressing slowly with PT secondary to pain. PT recommends SNF. Patient denies fever, chills, nausea, vomiting, urinary/bowel incontinence, numbness, tingling, chest pain, shortness of breath. Exam Vital Signs (past 8 hours): - 11/03/19 03:31 11/03/19 08:00 Temperature 98.2 F 97.4 F L Pulse Rate 82 76 Respiratory Rate 16 18 Blood Pressure 141/80 H 147/84 H Pulse Oximetry 92 97 Oxygen Delivery Method Room Air Oxygen Flow Rate 0 Narrative Exam Narrative: 64 year old male is laying comfortably in bed, in no apparent distress. A&Ox3. Dressing CDI. Sensory function grossly intact to light touch in LE bl. Dorsalis pedis 2+ bl. Calves warm, soft, compressible, non tender to palpation. Able to actively dorsiflex/plantar flex. Objective Labs Result Diagrams: 11/02/19 08:21 11/02/19 08:14 Labs: Laboratory Results - last 24 hr 11/02/19 17:30 Vancomycin Trough 16.7 Assessment & Plan Post-op Postoperative Procedures: Procedures Operation Date: 10/30/19 10:30 Actual Procedures Side Surgeon p L1-2 micro d w/ poss HW revision Alistair Cardozo MD Postoperative plan narrative: Culture results returned: P. acnes. Sensitivities sent out. Consulted with Dr. Arlene Marino (Infectious Disease), appreciate her recommendations and will change antibiotic coverage - Ceftriaxone 2g IV q24hr for 6 weeks - Discontinued Vancomycin/Levaquin - May change antibiotic coverage based on sensitivities Outpatient plan - Continue Ceftriaxone IV - Weekly labs: ESR, CRP, CMP, CBC w diff - Follow up with Dr. Cardozo in 1 week - PICC care - Patient may need PO antibiotics for 6 weeks after IV treatment Patient is progressing slowly with PT secondary to pain. Continue current pain management. Most likely will discharge to SNF tomorrow. Continue SCDs and mobilizing with PT Time Spent With Patient Time with patient: 15-24 minutes
--- NOTE | 2019-11-03 11:53 | OT.IP.TRT ---
Surgery Performed Operation Date: 10/30/19 10:30 Actual Procedures p L1-2 micro d w/ poss HW revision - Alistair Cardozo MD Occupational Therapy Treatment Note M2 OT-IP Current Condition Start: 10/31/19 11:55 Freq: Status: Active Protocol: Document 10/31/19 11:56 CGR (Rec: 10/31/19 12:24 CGR [id number]) Occupational Therapy Current Condition Current Condition Evaluation Date 10/31/19 Treatment Diagnosis Emergent L1-2 lami/ decompression with debridement of epidural lesion. Diagnosis Onset Date 10/30/19 Post Operative Precautions Lumbar Precautions Log Roll,No Twisting,Limit Bending,Lifting Restriction of 10 lbs,Gait Belt above Incisional Area M3 OT- IP Subjective and Pain Start: 10/31/19 11:55 Freq: Status: Active Protocol: Document 11/03/19 11:53 CCC (Rec: 11/03/19 11:53 CCC [id number]) OT- Subjective Occupational Therapy Visit Type Type Patient Unavailable Notes Pt getting PICC line placed, unable to see pt for OT.
--- NOTE | 2019-11-03 11:58 | DI.RAD.S_ITS ---
PROCEDURE: XR CHEST FOR PICC 1V INDICATIONS: Line placement TECHNIQUE: One view of the chest was acquired. COMPARISON: None. FINDINGS: Surgical changes and devices: A left-sided PICC line catheter is identified with the tip overlying the mid superior vena cava. Lungs and pleura: Lungs are clear. No pleural effusions or pneumothorax. Mediastinum: Mediastinal contours appear normal. Heart size is normal. Bones and chest wall: No suspicious bony lesions. Overlying soft tissues appear unremarkable. IMPRESSION: Left-sided PICC line catheter is position with the tip overlying the mid superior vena cava. Dictated by: Sudeep Guevara M.D. on 11/03/2019 at 12:07 Approved by: Sudeep Guevara M.D. on 11/03/2019 at 12:08
[2019-11-03] MEDS: SODIUM CHLORIDE 0.9% FLUSH 10 ML IV ×2 (12:28→21:46)
--- NOTE | 2019-11-03 13:47 | CM.DPC ---
Addendum entered by [place] R.N. 11/03/19 14:35: Spoke to Claudia in admissions at [facility] and confirmed that they are not able to transport to facility tomorrow. Confirmed with , Guera, that she will transport tomorrow. Original Note: DCP Cont: Spoke to orthopedics, who stated that patient will need between 3-4 weeks of IV antibiotics. Patient is having a PICC line placed today. Spoke to Jonathan at [facility] this morning who stated, he should be able to be authorized, but will review notes again today. Called and left her another message to confirm. Did get in touch with orthopedics who stated that they should be discharging tomorrow. Confirmed with Kael Montgomery in ortho. Was able to get in touch with Claudia in admissions at [facility]. Stated, they can accept, but have to look into transportation. Spoke to , and she stated she can transport to [place]. Discussed home infusion, stated, she does not want to do, is worried about infections. P: DCP to continue to follow. Plan is for Jon[facility] tomorrow, confirm with Khushbu at [facility], and to transport. America Bay RN/Training And Development Assistant
--- NOTE | 2019-11-03 14:36 | PT-IP ANOTE ---
pt stated that he just had a picc line put on and has been up using the toilet and stated can I have a break. pt refused PT but agreed for PT to check on him tomorrow.
--- NOTE | 2019-11-03 14:41 | CM.DPC ---
DCP Cont: Spoke to MARLENA Montgomery in ortho. Let him know that patient is authorized through [facility]. He did mention that patient will now be on q day antibiotics, as he confirmed with infection control. He asked about home infusions. Let him know, if once a day, would still have to learn to give medication, flush, etc, and does not seem to want to have this responsibility. She is worried about potential infection. If nurse was coming out daily to give antibiotics, she would be ok with this, but [facility] comes out for teaching purposes to ensure that patient can do this on their own. Let him know that at this time, [facility] is the plan, so he is aware. P: Patient is to go to [facility] tomorrow, is to transport. America Bay RN/[employer] Developer
[2019-11-03 15:38] VITALS: BP 139/74; PULSE 70; RESP 18; TEMP 37.1; O2SAT 99
[2019-11-03] MEDS: CEFTRIAXONE 2 GM/50 ML FROZ.PIGGY IV (15:48)
[2019-11-03 19:40] VITALS: BP 123/75; PULSE 65; RESP 18; TEMP 36.9; O2SAT 96
[2019-11-03] MEDS: SENNOSIDES 8.6 MG TABLET 17.2 MG PO (21:46)
[2019-11-03] MEDS: diazePAM 5 MG TABLET PO (21:46)
[2019-11-03 23:00] VITALS: BP 146/93; PULSE 73; RESP 16; TEMP 36.7; O2SAT 97
[2019-11-04] MEDS: hydrOXYzine pamoate 25 MG CAPSULE PO ×4 (02:26→12:09)
[2019-11-04] MEDS: HYDROMORPHONE 4 MG TABLET PO ×4 (02:26→12:10)
[2019-11-04] MEDS: ACETAMINOPHEN 325 MG TABLET 650 MG PO ×2 (05:22→12:09)
[2019-11-04 05:38] VITALS: BP 131/71; PULSE 66; RESP 16; TEMP 36.5; O2SAT 96
--- NOTE | 2019-11-04 06:34 | PC.NURSE ---
Patient having a tough time with pain control this night on the start of shift. Reported pain to be 6/10. Patient said he had tried to go longer in between doses of Dilaudid and vistiril. I encouraged patient to keep on top of pain, so we went back to Q3 dilaudid 4mg and vistiril 25mg. Pain was more tolerable at a 3/10. All other VSS, denies nausea. Lung sounds clear. Dressing is clean/dry and intact, CMS is intact. SCD's were worn at the beginning of shift, then patient declined to wear. IS encouraged, patient up out of bed ad dione, at bedside. Bed low and locked, call light within reach.
[2019-11-04 07:50] VITALS: BP 137/77; PULSE 70; RESP 17; TEMP 36.5; O2SAT 96
--- NOTE | 2019-11-04 08:40 | PM.PNPO.1 ---
Subjective Subjective Date Patient Seen: 11/04/19 Time Patient Seen: 08:40 Exam Vital Signs (past 8 hours): - 11/04/19 05:38 Temperature 97.7 F Pulse Rate 66 Respiratory Rate 16 Blood Pressure 131/71 Pulse Oximetry 96 Oxygen Delivery Method Room Air Oxygen Flow Rate 0 Objective Labs Result Diagrams: 11/02/19 08:21 11/02/19 08:14 Assessment & Plan Post-op Postoperative Procedures: Procedures Operation Date: 10/30/19 10:30 Actual Procedures Side Surgeon p L1-2 micro d w/ poss HW revision Alistair Cardozo MD
[2019-11-04] MEDS: DOCUSATE 100 MG CAPSULE PO (08:41)
[2019-11-04] MEDS: SODIUM CHLORIDE 0.9% FLUSH 10 ML IV ×2 (08:43→12:02)
--- NOTE | 2019-11-04 09:07 | CM.DPC ---
Addendum entered by JOSÉ LUIS José 11/04/19 11:20: ADD: Return call from [facility] stating that pt has a high deductible, and confirm it will likely be met by his hospital stay, but if deductible not met then would be $600 a week and once deductible met then copay of 20% which would be $120 a week. SW met bedside with pt and spouse and updated on above and they confirm that their preference is to d/c home after IV-Abx dose today with [facility] to follow. They are aware that [facility] will contact them to set up a time to arrive at their home this evening or in the morning. SW updated RN who will begin IV-Abx dose around [id number] and spouse will get Rx filled in the pharmacy downstairs prior to d/c home. SW faxed d/c summary and IV-Abx script to [facility] and confirmed they have the clinicals needed to open pt to service after discharge. SW called [facility] and left [facility] for admissions with update on pt now d/c home. FILI called [facility] and updated her on change in d/c from SNF to home infusion. Plan: Patient to d/c via spouse POV today and [facility] to open pt to service for 6 weeks IV-Abx. BF Original Note: DCP Cont: Per previous DCP note, pt has been approved by [facility] for [facility] SNF for ongoing IV-Abx and planned to provide transport as [facility] does not have transportation for up here at [facility]. Per RN, pt's IV-Abx now Rocephin and only Q24 instead of 3x a day and pt and spouse now inquiring about home infusion vs outpt infusion clinic. SW met bedside with RN and pt and spouse and explained role and further discussed home infusion services and frequency of RN not there every day but teaching for pt and spouse and also Outpt [facility] and if reasonable to drive once a day for 6 weeks. Pt and spouse currently requesting home infusion referral to confirm if any out of pocket expense etc.. SW made referral to [facility] based on Vendor Calendar and faxed clinicals to review along with calling [facility] and informing them pt likely would d/c today. [facility] will run pt's insurance and review clinicals and request IV-Abx dose to be given to pt today prior to d/c as the snow conditions would make it more difficult to get to pt's home this evening but that they would definitely be able to meet pt at home tomorrow for his next dose. Plan: SW to follow closely for [facility] review and confirmation they can accept pt and that his insurance coverage is good for likely d/c today. JOSÉ LUIS José
--- NOTE | 2019-11-04 09:26 | PT.IPTN ---
Surgery Performed Operation Date: 10/30/19 10:30 Actual Procedures p L1-2 micro d w/ poss HW rosa - Alistair Cardozo MD Physical Therapy Treatment Note M2 PT-IP Current Condition Start: 10/31/19 12:29 Freq: NEEDED Status: Active Protocol: Document 10/31/19 09:49 AB (Rec: 10/31/19 12:42 AB [id number]) Physical Therapy Current Condition Current Condition Evaluation Date 10/31/19 Treatment Diagnosis s/p L1-2 L hemilami, microdisc and I&D; difficulty in walking Onset Date 10/29/2019 Precautions Lumbar Precautions Log Roll,No Twisting,Limit Bending,Lifting Restriction of 10 lbs,Gait Belt above Incisional Area M3 PT-IP Subjective Start: 10/31/19 12:29 Freq: NEEDED Status: Active Protocol: Document 11/04/19 09:01 (Rec: 11/04/19 09:25 [id number]) Subjective Physical Therapy Visit Type Type Treatment Note Visit Start Time 09:01 Visit Stop Time 09:14 Total Visit Minutes 13 Notes CM in room with pt and Physical Therapy Visit Comments Patient Comments pt agreeable to do PT. Wanting to leave [facility] Therapy Pain Assessment Pain When Pain Assessed At Rest Pain Present Pain Present Pain Reported M4 PT-IP Mobility and Gait Start: 10/31/19 12:29 Freq: NEEDED Status: Active Protocol: Document 11/04/19 09:01 (Rec: 11/04/19 09:25 [id number]) PT-Bed Mobility Assessment Supine to Sit Supine to Sit Standby Assistance,Head of Bed Elevated Sit to Supine Sit to Supine Standby Assistance,Head of Bed Elevated PT-Transfer Assessment Sit to and From Stand Sit to and from Stand Standby Assistance Equipment Transfer Assistive Device Gait Belt,Front Wheeled Walker Orthotic/Prosthetic Devices or Brace: No Transfers Transfer Destination Bed Transfer Ability Level of Assist Standby Assistance,Use of Upper Extremities Comments Mobility Comments Pt SBA for all bed mobility and transfers. Cued for no twisting when sitting onto bed . Pt better with hip hinging in sit<>stand Gait Assessment Gait Gait Assistance Required: Standby Assistance Distance (Feet) 350 Able to Maintain Weight Bearing Status Yes During Gait Assistive Devices Assistive Device Gait Belt,Front Wheeled Walker Orthotic/Prosthetic Devices or Brace: No Gait Deviations General Gait Pattern Decreased Stride Length, Decreased Feet Clearance Factors Limiting Gait Function Factors Limiting Gait Function Decreased Strength,Pain,Poor Balance,Poor Safety Awareness Comments Gait Comments Pt has improved FWW management and posture when using walker . M5 PT-IP Objective Assessments Start: 10/31/19 12:29 Freq: NEEDED Status: Active Protocol: Document 10/31/19 09:49 AB (Rec: 10/31/19 12:42 AB [id number]) Orientation Orientation/Cognition Level of Alertness Alert Orientation Name,Place,Situation Safety Awareness Decreased Safety Awareness Gross Range of Motion Lower Extremity ROM Assessment Within Functional Limits Strength Lower Extremity Strength Assessment Bilaterally Impaired Comments Strength Comments RLE: 4-/5 LLE 3+/5 Muscle Tone Muscle Tone WNL Yes M6 PT-IP Treatment Start: 10/31/19 12:29 Freq: NEEDED Status: Active Protocol: Document 11/03/19 10:45 AB (Rec: 11/03/19 11:41 AB [id number]) Physical Therapy Treatment Education Education Provided Precautions,Safety M7 PT-IP Assessment and Plan Start: 10/31/19 12:29 Freq: NEEDED Status: Active Protocol: Document 11/04/19 09:01 LJ (Rec: 11/04/19 09:25 LJ [id number]) PT Summary Assessment and Plan Potential Rehabilitation Potential Good Summary Impairments Pain,ROM,Strength,Balance, Coordination,Sensation,Tone, Cognition,Bed Mobility, Transfers,Gait,Activity Tolerance Assessment Summary Pt has improved with precaution recall and adherance. Gait is normalizing and pt is less guarded with movement. Goals Bed Mobility Goal Standby Assistance Transfer Goal Standby Assistance,Front Wheeled Walker Gait Goal Standby Assistance,Front Wheel Walker Gait Distance 200 Other Goals up/down 2 steps L rail descending SBA up/down 8 steps R rail ascend/ L rail descend SBA Days to Meet Goals 5 Frequency of Treatment Frequency Of Treatment Twice a Day Treatment Plan Physical Therapy Treatment Plan Bed Mobility Training,Transfer Training,Gait Training, Therapeutic Exercise,Balance Retraining,Post Op Education, Discharge Planning,Hot or Cold Pack,Neuromuscular Re-ed, Coordination Retraining,Manual Therapy Recommendations To Nursing Amount of Assist Needed 1 Person Assist Discharge Recommendations PT Discharge Recommendations Home with Assistance,SNF Rehab
[2019-11-04 11:15] VITALS: BP 130/73; PULSE 71; RESP 16; TEMP 36.6; O2SAT 95
[2019-11-04] MEDS: CEFTRIAXONE 2 GM/50 ML FROZ.PIGGY IV (12:02)
--- NOTE | 2019-11-04 12:30 | OT.IP.TRT ---
Surgery Performed Operation Date: 10/30/19 10:30 Actual Procedures p L1-2 micro d w/ poss HW revision - Alistair Cardozo MD Occupational Therapy Treatment Note M2 OT-IP Current Condition Start: 10/31/19 11:55 Freq: Status: Active Protocol: Document 10/31/19 11:56 CGR (Rec: 10/31/19 12:24 CGR [email or web address]) Occupational Therapy Current Condition Current Condition Evaluation Date 10/31/19 Treatment Diagnosis Emergent L1-2 lami/ decompression with debridement of epidural lesion. Diagnosis Onset Date 10/30/19 Post Operative Precautions Lumbar Precautions Log Roll,No Twisting,Limit Bending,Lifting Restriction of 10 lbs,Gait Belt above Incisional Area M3 OT- IP Subjective and Pain Start: 10/31/19 11:55 Freq: Status: Active Protocol: Document 11/04/19 12:30 PJM (Rec: 11/04/19 12:58 PJM [id number]) OT- Subjective Occupational Therapy Visit Type Type Administrative Note Notes OT recheck completed. Pt plans to d/c home today with home IV antibiotics. Pt states he has had previous OT instruction re: lumbar precautions and adapted ADLs and has all necessary equipt at home. His will provide 24 hr assist PRN. Pt does not feel he needs any further OT services. No charge.
--- NOTE | 2019-11-04 13:07 | PM.DS.1 ---
History of Present Illness History of Present Illness Date Patient Seen: 11/04/19 Time Patient Seen: 13:07 Chief complaint: 'my back can't walk' Narrative: Patient has been bed ridden due to the severe back pain. The patient was admitted through the emergency room to the inpatient hospital for pain management and additional medical management. Patient has been having difficulty performing activity of daily living. After discussing risks benefits of treatment options, patient was scheduled for urgent lumbar decompression surgery. Discharge Providers Provider Date of admission: 10/29/19 14:05 Discharge Date: 11/04/19 Consults: 10/30/19 11:01 Consult to Respiratory Therapy Evaluate & Treat Comment: Physician Instructions: Evaluate and treat 10/30/19 14:49 Consult to Occupational Therapy Evaluate & Treat Comment: Physician Instructions: Evaluate and treat Consult to Physical Therapy Evaluate & Treat Comment: Physician Instructions: Evaluate and Treat Discharge provider: Maribel Kraus PA-C Summary Hospital Course Discharge Diagnosis: s/p I+D of lumbar spine Hospital Course: Rey was admitted for L1-2 left hemilaminectomy, L1-2 microdiscectomy, L1-2 irrigation debridement of epidural space with Dr. Cardozo. Patient during hospital stay received IV antibiotics and PICC line placed. Cultures grew P acnes. Infectious Disease was consulted and recommended ceftriaxone. Throughout the patient's stay he is eating and voiding without difficulty or assistance. He worked with physical therapy throughout his stay. Exam Vital Signs (past 8 hours): - 11/04/19 05:38 11/04/19 07:50 Temperature 97.7 F 97.7 F Pulse Rate 66 70 Respiratory Rate 16 17 Blood Pressure 131/71 137/77 Pulse Oximetry 96 96 Oxygen Delivery Method Room Air Oxygen Flow Rate 0 Narrative Exam Narrative: Patient sitting in bedside chair in NAD. He is alert and oriented X3. Dressing on back is CDI. Calves are soft, compressible, and nontender bilaterally. Dressing on back is CDI. He is able to actively dorsiflex and plantar flex. His pain was well controlled today. He has home infusion set up for IV antibiotics. Objective Labs Result Diagrams: 11/02/19 08:21 11/02/19 08:14 Discharge Plan Discharge Plan Patient Disposition: Home Discharge orders & Medications Prescriptions: New hydromorphone [Dilaudid] 4 mg tablet 4 mg PO Q4-6H PRN (Reason: pain (scale score 7-10)) Qty: 60 RF: 0 hydroxyzine pamoate [Vistaril] 25 mg capsule 25 mg PO Q6-8H PRN (Reason: muscle spasms) Qty: 60 RF: 0 ceftriaxone 2 gram recon soln 2 gram IV Q24H 42 Days Qty: 42 RF: 0 Continued diazepam 5 mg tablet 5 mg PO BID RF: 0 acetaminophen 325 mg Tablet 650 mg PO Q6HR PRN (Reason: Pain, Mild (1-3)) Qty: 60 RF: 0 docusate sodium [DOK] 100 mg Capsule 100 mg PO BID Qty: 60 RF: 0 Discontinued methylprednisolone 4 mg Tablets,Dose Pack See Rx Instructions .ROUTE .COMPLEX RF: 0 oxycodone 5 mg tablet 5 mg PO Q4H PRN (Reason: PAIN) RF: 0 trazodone 50 mg Tablet 50 mg PO BEDTIME RF: 0 Follow up/Referrals: Alistair Cardozo MD [Physician] - 11/12/19 11:10 am (This appointment is at the [place] office at [address] [place] [address]. The [place] office had no openings until the following week.) Diet/Activity/Treatments Diet: Regular Activity: no excessive bending, lifting, twisting Cold/Heat Therapy: continue cold/heat therapy as needed Other treatments: Cultures have been sent out for sensitivities - may switch antibiotic treatment depending on results Skin/Wound/Dressing Care Report to your healthcare provider any signs of infection, such as:: chills, fever, increased pain, unusual drainage and unusual redness Dressing: keep dressing dry. change dressing as needed Visit Report/Discharge Packet Instructions: DI for Laminectomy, How to Prevent Falls, Peripherally Inserted Central Catheter, DI for Postoperative Pain, DI for Prescription Opioid Use, Ceftriaxone Injection, DI for Microdiscectomy Stand Alone Forms: Surgery Discharge Visit Report Forms: Patient Portal/API, Stroke Signs & Symptoms Discharges patient from system. Discharge Date/Time: 11/04/19 14:05
--- NOTE | 2019-11-04 13:24 | PC.NURSE ---
Addendum entered by Tami Barbour R.N. 11/04/19 14:16: pt states has stool softeners at home, explained preventing constipation and probiotics during IV antibiotic use. Addendum entered by Tami Barbour R.N. 11/04/19 14:09: Discharge summary packet reviewed with pt and his Guera at bedside. No further voiced concerns, explained pt may shower with back dressing in place and with PICC line. To not soak back dressing and pt does need to cover his PICC line to prevent getting wet. Pt states is ready to go home. Pt left unit with all belongings via wheelchair in no acute distress with STATISTICAL GENETICIST escort. Pt's Guera present to drive pt home. Original Note: Day Shift- Spoke with Sonja from discharge planning at 1320, no further needs at this time, pt may discharge. RICHARD PICC dressing CDI, flushes well with brisk blood return with NS per hospital policy and protocol. Per MARLENA Allen at 1310, no need to change lower back dressing at this time, last changed 11/02. Extra coversite dressing given to pt. Follow up appointment made by this RN. Ceftriaxone Antibiotic given earlier at 1200, okayed by Amilcar in pharmacy to facilitate an earlier discharge.
== END 2019-11-04 14:05 | disposition home or self-care (01) | DRG 518 ==
LOC: ED 13:56 → AC 14:07
PROVIDERS: Physician Assistant Surgical; Admitting Provider Orthopaedic Surgery Orthopaedic Surgery of the Spine; Emergency Provider Emergency Medicine; Visit Provider Orthopaedic Surgery Orthopaedic Surgery of the Spine
PROC: 0SB20ZZ Excision of Lumbar Vertebral Disc, Open Approach (ICD-10-PCS; principal; 2019-10-30 10:30)
DX: M46.46 Discitis, unspecified, lumbar region (principal); G06.1 Intraspinal abscess and granuloma; M48.061 Spinal stenosis, lumbar region without neurogenic claudication; M51.16 Intervertebral disc disorders with radiculopathy, lumbar region; B96.89 Other specified bacterial agents as the cause of diseases classified elsewhere
CPT/HCPCS: 36415; 36569; 72100; 72158; 76000; 80048; 80202; 81003; 81015; 84145; 85025; 85651; 86140; 87070; 87075; 87077; 87205; 94760; 96374; 96376; 97116; 97161; 97165; 97530; 97535; 99284; J0330; J0696; J1100; J1170; J1956; J2405; J2704; J3010

== ENCOUNTER → 2020-10-05 13:35 | Outpatient (CLI) | payer OTHER, SELFPAY ==
[2020-10-05 15:35] LABS: COVID19 -Nasal RAPID Negative (Negative)
== END ==
PROVIDERS: Visit Provider Physician Assistant
DX: Z20.828 Contact with and (suspected) exposure to other viral communicable diseases (principal)
CPT/HCPCS: 87635

== ENCOUNTER 2020-10-07 10:35 | Inpatient (IN) | payer OTHER, SELFPAY ==
[2020-09-29 09:46] VITALS: BMI 30.7
[2020-10-07] VITALS (18 sets, daily range): BP systolic 107–150; BP diastolic 48–96; PULSE 68–91; RESP 10–20; TEMP 35.4–37.4; O2SAT 88–100; BMI 29.8
--- NOTE | 2020-10-07 | DI.RAD.S_ITS ---
PROCEDURE: XR LUMBAR SPINE 2-3V INDICATIONS: L5-S1 TLIF TECHNIQUE: AP and lateral operative views of the lumbar spine were acquired. COMPARISON: [facility], [place]AT[place], XR LUMBAR SPINE 2-3V, 10/30/2019, 13:40. FINDINGS: AP and lateral fluoroscopic images demonstrate posterior lateral joan and pedicle screw fixation from L2 through S1 with interbody cage material from L2-L3 through L5-S1. There is no radiographic evidence of complications. IMPRESSION: Operative imaging utilized during lumbar fusion surgery. Dictated by: Eran Samano M.D. on 10/07/2020 at 15:48 Approved by: Eran Samano M.D. on 10/07/2020 at 15:50
--- NOTE | 2020-10-07 11:18 | PM.PREOP ---
Pre-operative Note COVID-19 COVID-19 status: Negative Result date/Date tested (Pos, Neg/Pending): 10/05/20 Interval Note History & Physical reviewed/Exam performed by Physician: Yes Changes to H&P: No
[2020-10-07] MEDS: LACTATED RINGERS 1,000 ML 42 ML IV ×2 (11:26→14:39)
[2020-10-07] MEDS: CEFAZOLIN 2 GM/100 ML FROZ.PIGGY IV ×2 (11:51→20:34)
--- NOTE | 2020-10-07 12:35 | SUR.OPER ---
Prone on spine table, head in foam head support, padded chest and pelvic supports, gel pad at knees, lower legs supported by pillows; nipples, genitalia and toes free of pressure, arms secured on foam padded arm boards at <90 degrees abduction.
[2020-10-07] MEDS: BUPIVACAINE LIPOSOME 266 MG/20 ML VIAL INJ (12:50)
[2020-10-07] MEDS: BUPIVACAINE 0.25% W/ EPI (PF) 10 ML VIAL 20 ML INJ (12:51)
--- NOTE | 2020-10-07 15:51 | PM.OP.1 ---
Operative Date/Time/Diagnoses Date of procedure: 10/07/20 Time of procedure: 12:16 Pre-op diagnosis: 1. L5-S1 spinal stenosis 2. Hx of L2-5 PSF with instrumentation 3. L4-5, L5-S1 spondylosis with radiculopathy Post-op diagnosis: same Procedure & Clinicians Procedure: 1. L5-S1 posterolateral and posterior interbody fusion 2. L5-S1 posterior interbody cage placement 3. L2-3, L3-4, L4-5 posterior segmental instrumentation removal 4. L2-3, L3-4, L4-5 revision laminectomy with exploration of fusion 5. L2-3, L3-4, L4-5, L5-S1 posterior segmental instrumentation with pedicle screw placement 6. L4-5 posterolatearl fusion 7. [place] of bone marrow from iliac crest through a separate incision 8. Utilization of microsurgical technique and operating microscope Same procedure as scheduled: Yes Indications: Patient has been having chronic back pain and worsening lumbar radiculopathy. Patient failed multiple conservative management with worsening pain weakness and numbness in her lower extremity. Patient has been having difficulty performing activity of daily living. After discussing risks benefits of treatment options, patient elected proceed with surgery. Surgeon: Alistiar Cardozo Marine Driller: Maribel Kraus Click Yes if Unassisted: No Anesthesia Type: General Operative Notes Closure Type: primary Specimen(s): none sent Prosthetic devices, grafts, tissues, transplants, or devices: Globus revolve screws, Rise cage Applied: catheter Estimated Blood Loss (mL): 100 Blood products transfused: none Procedure in detail: Patient was seen in the preoperative area. Risks and benefits of the surgery was discussed with the patient. Informed consent was obtained from the patient and placed in the chart. Surgical site was marked. Patient was taken to the operative room. General anesthesia was administered. Prophylactic antibiotic was given to the patient less than 30 min before the incision was made. Patient was placed into a prone position on the Sloan table. Patient's back was then prepped and draped in the sterile fashion. Time-out was performed at this time. Using patient's previous scar incision was made over the L2-3 L3-4 L4-5 L5-S1 interval on the left side. Fascia was incised in line with skin incision. Patient's previously placed hardware over the L2-5 level was identified by dissecting down to the level the hardware using a Bovie and a Layton. The locking caps which was removed using globus screwdriver. The locking joan was then removed from the tulips of the pedicle screws using a Abby. The pedicle screws were then removed using the screwdriver. The screws were found to have good purchase except at the L5 level which had decreased purchase more on the left side. The Globus and MARS retractors was then placed into the wound and docked onto the L5 lamina using C-arm guidance. Using microsurgical technique and operating microscope a laminectomy facetectomy was performed by removing the L5 lamina and the L5-S1 facet. The disc space at L5-S1 level was identified next. And a total diskectomy was performed at L5-S1 level. The endplates were decorticated using a rasp and shaver. Patient was found have significant neuroforaminal stenosis which was decompressed by performing a laminectomy and total facetectomy which rendered the L5-S1 grossly unstable and required a fusion procedure at same time. The total diskectomy and decortication was performed at L5-S1 level in order to to accomplish a L5-S1 interbody fusion. The local bone from the laminectomy and facetectomy was saved for local bone grafting. After the total diskectomy and decortication was completed, Trifecta bone graft material was combined with local bone that was harvested earlier. At this time, a separate skin is incision was made over the iliac crest. A Jamshidi needle was inserted into the iliac crest through a separate skin incision. 5 cc of bone marrow aspiration was obtained through the separate skin incision using a Jamshidi needle from the iliac crest. The bone marrow aspiration was combined with local bone and the Trifecta bone grafting material. The bone grafting material was placed into the L5-S1 interbody space along with a expandable cage. The cage was expanded to its maximum height using the torque limiting screwdriver. At this time a mirror image incision was made on the right side. The fascia was incised in line with the skin incision. Patient's previously placed hardware on the right side was then removed in the same fashion as it was on the left side. The hardware was also found to have good purchase. The fusion mass on the right side was exposed by performing a right-sided hemilaminectomy at L2-3 L3-4 L4-5 level. The hemilaminectomy was performed using the Kerrison rongeur to undercut the lamina as well removing additional epidural scar tissue for purpose of decompressing the epidural space. The fusion mass was explored and was found have visible motion indicating pseudoarthrosis at the L4-5 level. The fusion was found to be solid at the L2-3 L3-4 level. Globus MARS retractor was inserted and docked onto the L4-5 L5-S1 posterolateral gutter. Using the power drill, posterior-lateral decortication was performed at L4-5 L5-S1 level until bleeding cortical bone was identified. The remaining bone grafting material was placed into the L4-5 L5-S1 posterior lateral gutter he order to accomplish posterolateral fusion at the L4-5 L5-S1 level. Using the double C-arm technique, pedicle screws were placed into the L2-L3-L4-L5 and S1 pedicles bilaterally. This was done by placing the Jamshidi needle into the pedicles, then placing the guidewires over the Jamshidi needle, and finally placing the cannulated screws over the guidewires bilaterally. After the pedicle screws were placed, 2 titanium rods was locked into the heads of the pedicle screws using locking caps and torque limiting screwdriver. After all the hardware was placed, and confirmed with AP and lateral C-arm imaging, the wound was then irrigated with sterile normal saline and packed with Ray-Shu gauze for 3 min to accomplish hemostasis. After the gauze was removed the deep fascia was closed with #1 Vicryl suture. The subcutaneous layer was closed with 2-0 Vicryl. The skin was closed with skin cole. Patient tolerated the procedure well. There were no complications. Complications: none Post-operative Condition: stable Disposition: PACU Plan for aftercare: Admit to inpatient hospital
[2020-10-07] MEDS: hydrOXYzine 50 MG/ML INJ IM (16:13)
[2020-10-07] MEDS: OXYCODONE/ACETAMINOPHEN 5/325 TABLET 1 TAB PO (16:24)
[2020-10-07] MEDS: HYDROMORPHONE 0.5 MG INJ IV (17:08)
[2020-10-07] MEDS: SODIUM CHLORIDE 0.9% 1,000 ML 100 ML IV (17:10)
[2020-10-07] MEDS: OXYCODONE IR 5 MG TABLET 10 MG PO ×2 (19:08→22:30)
[2020-10-07] MEDS: ACETAMINOPHEN 325 MG TABLET 650 MG PO (19:08)
[2020-10-07] MEDS: hydrOXYzine pamoate 25 MG CAPSULE PO (19:08)
[2020-10-07] MEDS: DOCUSATE 100 MG CAPSULE PO (20:34)
[2020-10-07] MEDS: SENNOSIDES 8.6 MG TABLET 17.2 MG PO (20:35)
[2020-10-08] VITALS (8 sets, daily range): BP systolic 114–132; BP diastolic 65–75; PULSE 7–87; RESP 15–19; TEMP 36.6–37.6; O2SAT 94–99
[2020-10-08] MEDS: OXYCODONE IR 5 MG TABLET 10 MG PO ×6 (03:05→21:47)
[2020-10-08] MEDS: CEFAZOLIN 2 GM/100 ML FROZ.PIGGY IV (03:05)
[2020-10-08] MEDS: hydrOXYzine pamoate 25 MG CAPSULE PO ×4 (08:00→21:47)
[2020-10-08] MEDS: CHOLECALCIFEROL (VITAMIN D3) 1,000 UNIT TABLET 1000 UNIT PO (08:01)
[2020-10-08] MEDS: DOCUSATE 100 MG CAPSULE PO ×2 (08:01→21:48)
[2020-10-08] MEDS: SODIUM CHLORIDE 0.9% FLUSH 10 ML IV ×2 (08:06→21:48)
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
--- NOTE | 2020-10-08 11:45 | CM.DANOTE ---
DCP: Case received, EMR reviewed and met with patient. Introduced self and role. Was able to obtain information from patient regarding his baseline activity status prior to surgery, as well as current living situation. DCP assessment completed with information currently available. Patient is a 65 year old male who admitted yesterday morning to the care of the orthopedic team. PCP: Dr. Cabrales. Payer: confirmed: [facility]. Patient came to the hospital for a surgical procedure. He had L5-S1 posterolateral and posterior interbody fusion. Patient has had history of spinal stenosis. Met with patient in his room. He is alert and oriented. He was sitting up in bed. Patient stated, this has been his third back surgery, so he knows what to expect. He has not yet worked with P.T. Patient resides on [address] with his spouse, Stephanie. 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 He does most of his home on [address]. P: DCP to continue to follow. Orthopedics had seen patient today, and anticipates discharge home tomorrow after working with P.T. 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
--- NOTE | 2020-10-08 12:02 | PC.NURSE ---
PT WORKING WITH PHYSICAL THERAPY AND GOT UP TO CHAIR - HAD PREVIOUSLY MEDICATED WITH 10MG PO OXYCODONE ALONG WITH 25MG VISTARIL- YULI REMOVED HTIS AM WITHOUT DIFFICULTY AND PLANNING FOR DC TO HOME TOMORROW- DRESSING CHANGED TO BACK INCISION
--- NOTE | 2020-10-08 13:46 | PC.NURSE ---
pt doing well- tolerating pain to low back with oxycodone use along with prn vistaril- up with PT- in chair for meals, dressing changed to back, +cms - monge removed approx 1100 with no urge to void as of yet
--- NOTE | 2020-10-08 14:00 | PT-IP ANOTE ---
Pt refused therapy this afternoon, d/t not feeling well. Will check back in AM.
[2020-10-08] MEDS: ACETAMINOPHEN 325 MG TABLET 650 MG PO ×2 (16:03→21:47)
[2020-10-08] MEDS: SENNOSIDES 8.6 MG TABLET 17.2 MG PO (21:48)
[2020-10-09] MEDS: OXYCODONE IR 5 MG TABLET 10 MG PO ×4 (00:59→11:09)
--- NOTE | 2020-10-09 01:02 | PC.NURSE ---
0100- Patient awake and states he is very uncomfortable in the bed. Patient assisted to the recliner chair. Positioned to comfort with pillows and medicated per order. Patient states he sleeps in a recliner chair at home. Will monitor.
[2020-10-09] MEDS: MAG HYDROX/ALUM/SIMETH 30 ML UDC PO (03:50)
[2020-10-09] MEDS: ACETAMINOPHEN 325 MG TABLET 650 MG PO ×2 (03:50→11:09)
[2020-10-09 03:56] VITALS: BP 123/73; PULSE 88; RESP 18; TEMP 37.2; O2SAT 97
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
[2020-10-09 08:00] VITALS: BP 114/70; PULSE 73; RESP 16; TEMP 36.7; O2SAT 95
[2020-10-09] MEDS: DOCUSATE 100 MG CAPSULE PO (08:13)
[2020-10-09] MEDS: CHOLECALCIFEROL (VITAMIN D3) 1,000 UNIT TABLET 1000 UNIT PO (08:13)
[2020-10-09 08:41] VITALS: PULSE 73; RESP 18; O2SAT 96
--- NOTE | 2020-10-09 11:29 | OT.IP.TRT ---
Current Diagnoses Other spondylosis with radiculopathy, lumbosacral region (10/07/20) Spinal stenosis, lumbar region without neurogenic claudication (10/07/20) Arthrodesis status (10/07/20) Surgery Performed Operation Date: 10/07/20 12:15 Actual Procedures p L5-S1 TLIF, L2-5 lumbar HWR, exploration of fusion, repeat laminectomy, reinsertion of hardware - Alistair Cardozo MD Occupational Therapy Treatment Note M2 OT-IP Current Condition Start: 10/08/20 14:32 Freq: Status: Active Protocol: Document 10/08/20 14:32 CGR (Rec: 10/08/20 14:56 CGR [id number]) Occupational Therapy Current Condition Current Condition Evaluation Date 10/08/20 Treatment Diagnosis L2-S1 TLIF revision Diagnosis Onset Date 10/07/20 Post Operative Precautions Lumbar Precautions Log Roll,No Twisting,Limit Bending,Lifting Restriction of 10 lbs,Gait Belt above Incisional Area M3 OT- IP Subjective and Pain Start: 10/08/20 14:32 Freq: Status: Active Protocol: Document 10/09/20 11:17 RM (Rec: 10/09/20 11:28 RM [id number]) OT- Subjective Occupational Therapy Visit Type Type Treatment Note Visit Start Time 10:30 Visit Stop Time 11:15 Total Visit Minutes 45 Occupational Therapy Visit Comments Patient Comments I can't reach my feet if I wanted to. Patient/Caregiver Goals Return home with his . OT Pain Assessment Pain When Pain Assessed During Mobility Pain Present Pain Present Pain Reported Location Back 8/10 (6/10 at start of session) Scale Used Numeric (0 - 10) Pain Behaviors Facial Grimacing,Guarding, Wincing Management Techniques Modification of Treatment,Re- positioning M4 OT- IP ADL's Start: 10/08/20 14:32 Freq: Status: Active Protocol: Document 10/09/20 11:17 RM (Rec: 10/09/20 11:28 RM [id number]) OT ADL-Dressing General Eval Upper Body Dressing Ability Independent Lower Body Dressing Ability Maximum Assistance Areas Needing Assistance Socks Comments OT Dressing Comments Patient able to don clean hospital gown after shower w/ s/u only. He was dependent to doff/don socks. Reports able to assist for LB dressing as needed. OT ADL-Toileting General Evaluation Toileting Ability Standby Assistance Devices Toileting Assistive Devices Grab Bars OT ADL-Bathing Bathing Type Bathing Type Shower General Evaluation Bathing Ability Minimal Assistance Areas Needing Assistance Retrieving/Setting Up Items, Wash/Dry Lower Extremities Devices Bathing Equipment Hand Held Shower Sprayer, Shower Chair with Arms,Grab Bars Comments OT Bathing Comments Patient able to complete shower with use of adaptive equipment and assist for LEs. Painful with all movements. Wound covered for shower to protect from water. Alerted RN to drainage noted on bandage and she is aware and monitoring. M7 OT- IP Mobility and Balance Start: 10/08/20 14:32 Freq: Status: Active Protocol: Document 10/09/20 11:17 RM (Rec: 10/09/20 11:28 RM [id number]) OT-Transfer Assessment Sit to and From Stand Sit to and from Stand Minimal Assistance Transfers Transfer Ability Contact Guard Assistance Technique Transfer Destination Chair,Shower Stall,Toilet Devices Transfer Assistive Devices Gait Belt,Front Wheeled Walker OT- Gait Assessment Gait Gait Assistance Required: Contact Guard Assist Assistive Devices Assistive Device Gait Belt,Front Wheeled Walker Comments Gait Ability Comments Patient ambulating in room to access BR CGA using FWW. Requires assist to transition to stand as he fatigues and became more painful with activity. M9 OT- IP Assessment and Plan Start: 10/08/20 14:32 Freq: Status: Active Protocol: Document 10/09/20 11:17 RM (Rec: 10/09/20 11:28 RM [id number]) OT Summary Assessment and Plan Summary OT Impairments Pain,Strength,Functional Mobility,Dressing,Toileting, Bathing,Toilet Transfers, Shower Transfers,Activity Tolerance Progress Towards Goals Slow Progress due to Pain Assessment Summary Patient is participating well with self-care, but remains limited by significant pain progressing from 6/10 to 8/10 by end of session. He also required increased assist to stand towards end of session as pain progressed. Trialed alternatives for transition to stand pushing vs pulling to limit pain and maintain precautions with little change in pain. He reports supportive able to assist with greatest barrier being adequate pain control to allow him to tolerate drive home and still be able to safely mobilize. Discharge Recommendations OT Discharge Recommendations Home with Assistance Transportation Needs at Discharge Private Vehicle
[2020-10-09] MEDS: hydrOXYzine pamoate 25 MG CAPSULE PO (12:19)
--- NOTE | 2020-10-09 12:23 | PT.IPTN ---
Current Diagnoses Other spondylosis with radiculopathy, lumbosacral region (10/07/20) Spinal stenosis, lumbar region without neurogenic claudication (10/07/20) Arthrodesis status (10/07/20) Surgery Performed Operation Date: 10/07/20 12:15 Actual Procedures p L5-S1 TLIF, L2-5 lumbar HWR, exploration of fusion, repeat laminectomy, reinsertion of hardware - Alistair Cardozo MD Physical Therapy Treatment Note M2 PT-IP Current Condition Start: 10/08/20 13:10 Freq: NEEDED Status: Active Protocol: Document 10/08/20 09:49 AB (Rec: 10/08/20 13:19 AB [id number]) Physical Therapy Current Condition Current Condition Evaluation Date 10/08/20 Treatment Diagnosis s/p L5S1 fusion; L2-S1 instrumentation; difficulty in walking Onset Date 10/07/20 Precautions Lumbar Precautions Log Roll,No Twisting,Limit Bending,Lifting Restriction of 10 lbs,Gait Belt above Incisional Area M3 PT-IP Subjective Start: 10/08/20 13:10 Freq: NEEDED Status: Active Protocol: Document 10/09/20 11:57 CLB (Rec: 10/09/20 12:44 CLB [id number]) Subjective Physical Therapy Visit Type Type Treatment Note Visit Start Time 11:57 Visit Stop Time 12:23 Total Visit Minutes 26 Number of COLLAR WORKER Visits 1 Physical Therapy Visit Comments Patient Comments pt is agreeable to do PT Therapy Pain Assessment Pain When Pain Assessed At Rest Pain Present Pain Present Pain Reported Location Back Intensity 8 Scale Used Numeric (0 - 10) Pain Management Techniques Apply Cold,Distraction, Modification of Treatment,Re- positioning,Timing of Activity with Medications M4 PT-IP Mobility and Gait Start: 10/08/20 13:10 Freq: NEEDED Status: Active Protocol: Document 10/09/20 11:57 CLB (Rec: 10/09/20 12:44 CLB [id number]) PT-Transfer Assessment Sit to and From Stand Sit to and from Stand Minimal Assistance,1 Person Assistance,Use of Upper Extremities Equipment Transfer Assistive Device Gait Belt,Front Wheeled Walker Orthotic/Prosthetic Devices or Brace: No Transfers Transfer Destination Chair,Wheelchair Transfer Technique ambulated using FWW Transfer Ability Level of Assist Minimal Assistance,1 Person Assistance,Use of Upper Extremities Comments Mobility Comments Pt in chair with high pain but wanted to work with therapy, pts present for CG training. Pt required Min A sit-stand and ambulated ~45ft w/FWW/CGA provided by . Pt then sat in WC requiring Min A to slow descent. Pt rode in W/C to therapy stairs. Pt stood Min A provided by , pt able to climb three steps with right rail and DIRECTOR STRATEGY provided from and descended stairs with left rail and hand on wifes shoulder. stated she will have a friend available to assist pt into home. Pt then sat in W/C Min A to slow descent and rode back to room. Once in room pt stood Min A and transferred to chair. Pt left in reclined chair with call light and all needs within reach, present. Pt respectfully refused bed mobility as pt states he has difficulty getting out of bed due to pain and will sleep in his recliner for a few weeks. Gait Assessment Gait Gait Assistance Required: Contact Guard Assist,1 Person Assist Distance (Feet) 45 Able to Maintain Weight Bearing Status Yes During Gait Assistive Devices Assistive Device Gait Belt,Front Wheeled Walker Orthotic/Prosthetic Devices or Brace: No Gait Deviations General Gait Pattern Antalgic,Decreased Stride Length,Decreased Feet Clearance Factors Limiting Gait Function Factors Limiting Gait Function Decreased Activity Tolerance, Decreased Strength,Limited Range of Motion,Pain,Poor Balance,Poor Safety Awareness Comments Gait Comments Pt required CGA with gait with assist from . Pt uses heavy UE use to decrease pain with ambulation. Stair Climbing Assessment Evaluation Level of Assist On Stairs Contact Guard Assistance,1 Person Assistance Devices Stair Climbing Assistive Devices Left Railing,Right Railing Technique/Endurance Stair Climbing Direction Ascend and Descend Stair Climbing Technique Step to Step Number of Steps Climbed 3 Stair Climbing Set # Repetitions (reps) 1 Comments Stair Climbing Comments Pt used right rail ascending and left rail descending. Pt able to assist pt with stair climbing. M5 PT-IP Objective Assessments Start: 10/08/20 13:10 Freq: NEEDED Status: Active Protocol: Document 10/08/20 09:49 AB (Rec: 10/08/20 13:19 AB [id number]) Orientation Orientation/Cognition Level of Alertness Alert Orientation Name,Place,Situation Language Function Ability No Deficits Noted Safety Awareness Decreased Safety Awareness Gross Range of Motion Lower Extremity ROM Assessment Within Functional Limits Strength Lower Extremity Strength Hip 4-/5 Knee 4/5 Coordination Assessment Gross Coordination Gross Coordination WNL Sensation Assessment Sensation Gross Sensation WNL Muscle Tone Muscle Tone WNL Yes M6 PT-IP Treatment Start: 10/08/20 13:10 Freq: NEEDED Status: Active Protocol: Document 10/08/20 09:49 AB (Rec: 10/08/20 13:19 AB [id number]) Physical Therapy Treatment Education Education Provided Precautions,Weight Bearing Status,Post-Op Packet,Safety M7 PT-IP Assessment and Plan Start: 10/08/20 13:10 Freq: NEEDED Status: Active Protocol: Document 10/09/20 11:57 CLB (Rec: 10/09/20 12:44 CLB [id number]) PT Summary Assessment and Plan Potential Rehabilitation Potential Good Status of Condition at Evaluation Stable Summary Impairments Pain,ROM,Strength,Balance, Sensation,Cognition,Bed Mobility,Transfers,Gait, Activity Tolerance Assessment Summary Pt with high pain of 8/10 during rest and 7.95/10 during mobility. Pt present for CG training and is able to appropriately assist pt with sit<>stand, transfers, gait and stair climbing. Pt requires Min A for sit<>stand and requires CGA for gait and stair climbing. Pt refused bed mobility as he will sleep in his recliner for a few weeks once home. Pt is steady during mobility but is in a significant amount of pain. Goals Bed Mobility Goal Standby Assistance Transfer Goal Standby Assistance,Front Wheeled Walker Gait Goal Standby Assistance,Front Wheel Walker Gait Distance 150 Other Goals up/down 2 steps R rail ascending SBA Days to Meet Goals 3 Frequency of Treatment Frequency Of Treatment Twice a Day Treatment Plan Physical Therapy Treatment Plan Bed Mobility Training,Transfer Training,Gait Training, Therapeutic Exercise,Balance Retraining,Post Op Education, Discharge Planning,Hot or Cold Pack,Neuromuscular Re-ed, Coordination Retraining,Manual Therapy Recommendations To Nursing Amount of Assist Needed 1 Person Assist Discharge Recommendations PT Discharge Recommendations Home with Assistance Transportation Needs at Discharge Private Vehicle
--- NOTE | 2020-10-09 13:09 | PC.NURSE ---
Pt with orders to d/c home after PT clearance. present for PT session. Pt did well and was cleared for dc home. Pt's pain being managed with PO oxycodone q3h PRN. Pt reports initial pain score of 7/10 and upon reassessment was noted to be sleeping comfortably in the chair. Upon awakening, pt reports pain is improved and tolerable but continues to rate pain high (6/10). He states he would like to go home today and doesn't feel the high pain ratings should affect his ability to do so. at bedside expresses concern regarding pain rx and feels they have been given an inadequate supply. She requests I call the provider to obtain an rx for add'l [address] Soto and reported pt/ request. He instructs to call the office and report need for refill when current rx is close to being exhausted. Updated to pt/. They verbalize understanding. Reviewed d/c packet, medication regimen (dosing, time, next dose due), educational materials, importance of f/u, when to seek emergency medical tx, s/s of post op wound infx. They verbalize understanding. Pt was assisted to dress by his . He transferred from chair to w/c and was escorted to private vehicle by PRESIDENT + PUBLISHER in no acute distress.
== END 2020-10-09 13:10 | disposition home or self-care (01) | DRG 454 ==
PROVIDERS: Admitting Provider Orthopaedic Surgery Orthopaedic Surgery of the Spine; PCP Family Medicine Adult Medicine; Referring Provider Family Medicine Adult Medicine; Visit Provider Orthopaedic Surgery Orthopaedic Surgery of the Spine
PROC: 0SG30AJ Fusion of Lumbosacral Joint with Interbody Fusion Device, Posterior Approach, Anterior Column, Open Approach (ICD-10-PCS; principal; 2020-10-07 12:15)
DX: M48.07 Spinal stenosis, lumbosacral region (principal); T84.038A Mechanical loosening of other internal prosthetic joint, initial encounter; M96.0 Pseudarthrosis after fusion or arthrodesis; M47.27 Other spondylosis with radiculopathy, lumbosacral region; M43.16 Spondylolisthesis, lumbar region; M47.26 Other spondylosis with radiculopathy, lumbar region; M96.1 Postlaminectomy syndrome, not elsewhere classified; Z20.828 Contact with and (suspected) exposure to other viral communicable diseases; Z98.1 Arthrodesis status
CPT/HCPCS: 72100; 76000; 82962; 87635; 94760; 97116; 97161; 97165; 97530; 97535; C1776; C9290; J0330; J0690; J1100; J1170; J2250; J2405; J2704; J3010; J3410